=== PATIENT | female | born 1955 | race Caucasian/White ===

== ENCOUNTER 2017-07-25 10:23 | Emergency (ER) | payer OTHER ==
[2017-07-25] MEDS ORDERED: Ondansetron ODT TAB* 4 MG PO ONE (11:41)
[2017-07-25] MEDS ORDERED: PROCHLORPERAZINE INJ 5 MG/ML 2 ML VIAL IM ONE (12:08)
[2017-07-25 12:26] VITALS: BP 150/67
--- NOTE | 2017-07-25 13:02 | UC ---
Carson Bliss Angela, scribed for Tawana Corey MD on 07/25/17 at 1132 . General HPI - HPI Summary HPI Summary: This pt is a 61 y/o female presenting to [facility] c/o nausea, vomiting, and diarrhea x3 days. Pt reports she first had 1 episode of emesis 5 days ago (on Thursday). She states she felt fine the next day and went to work. On Thursday, 3 days ago, she began to have nausea, vomiting, and diarrhea. Pt additionally notes feeling dizziness, light-headedness, generalized weakness, cold and hot chills. Pt reports a 100.8 F temperature last night. Pt took motrin yesterday but notes she vomited it. Pt describes diarrhea as watery, and overnight she had a BM. She denies bloody stools. She last urinated today and had some diarrhea. Her last episode of emesis was last night. Pt notes additional sx of abd cramping with her symptoms. Pt states having decreased fluid intake. Pt is no longer taking metformin. She reports taking lyrica, gabapentin (for neuropathy in feet), baby aspirin, multivitamins, lisinopril, and recently started taking pioglitazone (for DM). Pt states she has not been taking gabapentin over the last few days since her symptoms began (3 days ago on Thursday night). Only diabetes medication she has been taking is pioglitazone, last taken this morning. Has been missing most of her other meds. PMHx: rectal CA, diabetes. Here accompanied by her daughter. - History of Current Complaint Chief Complaint: UCAbdominalPain Stated Complaint: VOMITING/DIARRHEA CHILLS Time Seen by Provider: 07/25/17 11:20 Hx Obtained From: Patient Onset/Duration: Lasting Days Timing: Constant Associated Signs & Symptoms: Positive: Abdominal Pain, Diarrhea, Fever, Nausea, Vomiting. Negative: Headache - Allergy/Home Medications Allergies/Adverse Reactions: Allergies Allergy/AdvReac Type Severity Reaction Status Date / Time Nickel Allergy Severe Rash Verified 07/25/17 10:29 Nylon Allergy Severe Rash And Verified 07/25/17 10:29 Itching Tetracycline [From Sumycin] Allergy Severe Nausea And Verified 07/25/17 10:29 Vomiting Penicillins Allergy Intermediate Rash Verified 07/25/17 10:29 Sulfa Drugs Allergy Intermediate Rash Verified 07/25/17 10:29 Trimethoprim [From Trimpex] Allergy Intermediate Swelling Verified 07/25/17 10: 29 Home Medications: Home Medications Pioglitazon/[id number]/1000(NF) 30 mg PO DAILY 07/25/17 [History Confirmed ] PMH/Surg Hx/FS Hx/Imm Hx - Additional Past Medical History Additional PMH: PMHx: peripheral neuropathy Endocrine History: Diabetes Other Respiratory History: DENIES COPD Cancer History: Other Other Cancer History: rectal CA 2014 - Surgical History Surgical History: Yes Surgery Procedure, Year, and Place: HYSTERECTOMY/2 C-SECTIONS/LT KNEE scoped - Family History Known Family History: Positive: Other - Father: lung CA. Mother: pancreatic CA. - Social History Lives: Alone Alcohol Use: Occasionally Alcohol Amount: 1-2 DRINKS/WEEKENDS Substance Use Type: None Smoking Status (MU): Former Smoker Type: Cigarettes Amount Used/How Often: QUIT 6 YEARS AGO Have You Smoked in the Last Year: No When Did the Patient Quit Smoking/Using Tobacco: 2008 Review of Systems Constitutional: Fever, Chills, Other - fingerstick today is 185. Last home check several days ago was 300. Skin: Negative Eyes: Negative ENT: Negative Respiratory: Negative Cardiovascular: Negative Gastrointestinal: Abdominal Pain, Vomiting, Diarrhea, Nausea Genitourinary: Negative, Other - normal renal function by report. Motor: Negative Neurovascular: Negative Neurological: Weakness - generalized, Numbness - takes both lyrica and gabapentin for neuropathy, Other - light-headedness, dizziness Psychological: Negative All Other Systems Reviewed And Are Negative: Yes Physical Exam Triage Information Reviewed: Yes Appearance: Ill-Appearing, Obese Vital Signs: Initial Vital Signs Temp 98 F 07/25/17 10:30 Pulse 101 07/25/17 10:30 Resp 20 07/25/17 10:30 BP 144/69 07/25/17 10:30 Pulse Ox 100 07/25/17 10:30 Eye Exam: Normal ENT: Positive: Pharynx normal - moist mucous membranes. Dental Exam: Normal Neck: Positive: Supple, Nontender, No Lymphadenopathy Respiratory: Positive: Lungs clear, Normal breath sounds Cardiovascular: Positive: RRR, No Murmur, Tachycardia - mild initially Abdomen Description: Positive: Nontender, No Organomegaly, Soft Bowel Sounds: Positive: Present Musculoskeletal Exam: Normal Neurological: Positive: Alert - looks mildly fatigued. Psychological Exam: Normal Skin Exam: Normal - warm and dry, no edema. Re-Evaluation - Re-Evaluation First Eval Re-Evaluation Time: 12:45 Comment: Pt is a little better. She is a little less nauseated and is tolerating sips. Course/Dx - Course Course Of Treatment: Pt medications reviewed this visit. Elevated blood pressure is noted. Glucose is 184. - Differential Dx - Multi-Symptom Differential Diagnoses: Other - dehydration, gastroenteritis Provider Diagnoses: gastroenteritis, mild dehydration. diabetes. suspect withdrawal from gabapentin. Discharge - Discharge Plan Condition: Stable Disposition: HOME Patient Education Materials: Gastroenteritis (ED), Clear Liquid Diet (ED) Forms: *Work Release Referrals: Mckayla Schaeffer MD [Primary Care Provider] - Additional Instructions: I think that you have had a viral gastroenteritis that is getting better slowly. You are mildly dehydrated, but I suspect that some of your symptoms are due to abruptly stopping the gabapentin and Lyrica. Once at home, take a dose of gabapentin with a sip of fluid. I anticipate that this will further decrease your nausea. Continue rehydration with sips of clear fluids. Clear soup broth would be a good choice because it would get some nutrition into you. Continue clear liquids through this afternoon, taking small sips frequently. If by 6 pm you are not improved and able to tolerate fluids, please go to the ER for evaluation, because you will need lab work in order to guide fluid replacement. If you have an appetite, begin to eat small meals: soups, pasta, baked or poached meats, cooked vegetables. The documentation as recorded by the Carson briceño Angela accurately reflects the service I personally performed and the decisions made by me, Tawana Corey MD.
== END 2017-07-25 13:02 | disposition home or self-care (01) ==
LOC: UCEAST 10:23
DX: K52.9 Noninfective gastroenteritis and colitis, unspecified (principal); E11.9 Type 2 diabetes mellitus without complications; Z88.6 Allergy status to analgesic agent; Z88.1 Allergy status to other antibiotic agents; Z88.0 Allergy status to penicillin; Z88.2 Allergy status to sulfonamides; Z88.8 Allergy status to other drugs, medicaments and biological substances
CPT/HCPCS: 96372; 99212; A9270-GY; G0463; J0780

== ENCOUNTER 2017-08-08 11:02 | Emergency (ER) | payer OTHER ==
[2017-08-08 11:17] VITALS: BP 124/65
[2017-08-08] MEDS ORDERED: oxyCODONE/Acetamin 5/325 MG* TAB PO ONE (12:27)
[2017-08-08] MEDS ORDERED: Ketorolac INJ* 60 MG/2 ML VIAL IM ONE (12:27)
--- NOTE | 2017-08-08 13:14 | RAD ---
CLINICAL HISTORY: Left flank pain COMPARISON: March 19, 2016 TECHNIQUE: Multiple contiguous axial CT scans were obtained of the abdomen and pelvis, without intravenous contrast enhancement. Coronal and sagittal multiplanar reformations are submitted for review. Oral contrast was not administered. FINDINGS: LUNG BASES: The lung bases are clear. LIVER: The liver is homogeneously enlarged measuring 20 cm in long axis. BILE DUCTS: There is no intrahepatic or extrahepatic biliary dilatation. GALLBLADDER: A gallstone is noted. No pericholecystic inflammatory changes noted. PANCREAS: The pancreas is normal, without mass or ductal dilatation. SPLEEN: Normal in size and appearance. UPPER GI TRACT: Evaluation of the gastrointestinal tract is limited by incomplete gastric distention. The upper GI tract is unremarkable. SMALL BOWEL AND MESENTERY: The small bowel is normal in contour, course, and caliber. There is no obstruction or dilatation. COLON: There are multiple diverticula of the sigmoid colon. There is no pericolonic inflammatory change. ADRENALS: Normal bilaterally. KIDNEYS: There is a 0.6 cm left renal pelvic stone. There is a 0.2 cm calculus of the proximal left ureter at the UPJ. There is no appreciable hydronephrosis. BLADDER: The bladder is smooth in contour. PELVIC ORGANS: The pelvic organs are not visualized. AORTA: There is calcific atherosclerotic disease of the abdominal aorta and its branches, without aneurysmal dilatation IVC: Unremarkable LYMPH NODES: There is no lymphadenopathy by size criteria. ABDOMINAL WALL: There is no evidence for abdominal wall hernia. BONES AND SOFT TISSUES: There are mild diffuse degenerative changes. OTHER: None IMPRESSION: 1. LEFT-SIDED NEPHROLITHIASIS WITHOUT APPRECIABLE HYDRONEPHROSIS. 2. HEPATOMEGALY. 3. CHOLELITHIASIS. 4. DIVERTICULOSIS. 5. ATHEROSCLEROSIS.
--- NOTE | 2017-08-08 13:18 | RAD ---
HISTORY: The upper lumbar pain, left flank pain COMPARISONS: CT dated July 31, 2017 TECHNIQUE: Multiple contiguous axial CT scans were obtained of the lumbar spine without intravenous contrast, with coronal and sagittal multiplanar reformations. FINDINGS: SPINAL CANAL: Evaluation of the central canal is limited on CT technique; however, there is no obvious canalicular mass or epidural hemorrhage. ALIGNMENT: The alignment is normal. VERTEBRAL BODIES: There is multilevel anterolateral marginal osteophyte formation. JOINTS: There is facet hypertrophy change most pronounced at L5-S1 MUSCULATURE: Unremarkable INTERVERTEBRAL DISCS: There is diffuse loss of intervertebral disc height throughout the spine. AXIAL IMAGES: T12-L1: There is no osseous neural foraminal narrowing or central canal stenosis. L1-L2: There is no osseous neural foraminal narrowing or central canal stenosis. L2-L3: There is no osseous neural foraminal narrowing or central canal stenosis. L3-L4: There is no osseous neural foraminal narrowing or central canal stenosis. L4-L5: There is broad-based disc bulge. There is no significant neural foraminal narrowing central canal stenosis. L5-S1: There is bilateral facet hypertrophy with marginal osteophyte formation at the neural foramina bilaterally. There is moderate bilateral neural foraminal narrowing. There is no osseous central canal stenosis. SOFT TISSUES: Again noted is left-sided nephrolithiasis OTHER: None IMPRESSION: 1. AGAIN NOTED IS LEFT-SIDED NEPHROLITHIASIS. 2. DEGENERATIVE DISC DISEASE AND OSTEOARTHRITIS
[2017-08-08] MEDS ORDERED: Cyclobenzaprine TAB* 10 MG PO ONE (13:49)
[2017-08-08] MEDS ORDERED: Tamsulosin CAP* 0.4 MG PO ONE (13:50)
[2017-08-08 14:26] LABS: Hematocrit 36 % (35-47); Mean Corpuscular HGB Conc 34 g/dl (31-36); Mean Corpuscular Hemoglobin 31 pg (27-31); Mean Corpuscular Volume 91 fL (80-97); Mean Platelet Volume 7 um3 (7.4-10.4); Red Blood Count 3.89 10^6/ul (4.0-5.4); Red Cell Distribution Width 14 % (10.5-15); White Blood Count 6.6 10^3/ul (3.5-10.8)
[2017-08-08 14:43] LABS: Albumin 4.2 g/dL (3.2-5.2); BUN/Creatinine Ratio 19.3 (8-20); C Reactive Protein 39.17 mg/L (< 5.00); Calcium 10.8 mg/dL (8.6-10.3); EGFR Non-African American 65.3 (>60); Globulin 4.4 g/dL (2-4); Potassium 3.9 mmol/L (3.5-5.0); Total Bilirubin 0.5 mg/dL (0.2-1.0); Total Protein 8.6 g/dL (6.4-8.9)
[2017-08-08 14:50] LABS: Urine Bacteria Absent (Absent); Urine Bilirubin Negative (Negative); Urine Glucose Negative (Negative); Urine Nitrite Negative (Negative)
[2017-08-08] MEDS ORDERED: Ciprofloxacin TAB* 500 MG PO ONE (15:20)
--- NOTE | 2017-08-08 15:38 | ED ---
Mauro Bliss Thomas, scribed for Alvarez Chu MD on 08/08/17 at 1219 . Back Pain - HPI Summary HPI Summary: The pt is a 61 y/o F presenting to the ED c/o back pain that began seven days ago. The pain is worst on the left side. The pain began after she was mowing her lawn. The pain does not radiate into her buttocks or legs. The pain comes and goes. The pain is described as spasmodic. The pain is rated 5/10. The pain is aggravated by movement and is alleviated by nothing. The patient has treated the pain with Cyclobenazaprine 10mg and [id number] ibuprofen. She reports prior back injuries. Pt additionally c/o constipation. Pt denies abd pain, nausea, vomiting, dysuria, urinary or fecal incontinence. - History of Current Complaint Chief Complaint: EDBackInjuryPain Stated Complaint: BACK PAIN Time Seen by Provider: 08/08/17 12:06 Hx Obtained From: Patient Onset/Duration: Lasting Weeks - onset of pain one week ago, Still Present Onset/Duration: Still Present Timing: Intermittent Severity Currently: Severe Pain Intensity: 5 Pain Scale Used: 0-10 Numeric Character: Spasmodic Aggravating Symptom(s): Movement Alleviating Symptom(s): Nothing Associated Signs And Symptoms: Positive: Other - Constipation; NEGATIVE: nausea , vomiting, dysuria. Negative: Fever, Abdominal Pain, Bladder Incontinence, Bowel Incontinence - Allergies/Home Medications Allergies/Adverse Reactions: Allergies Allergy/AdvReac Type Severity Reaction Status Date / Time Nickel Allergy Severe Rash Verified 07/25/17 10:29 Nylon Allergy Severe Rash And Verified 07/25/17 10:29 Itching Tetracycline [From Sumycin] Allergy Severe Nausea And Verified 07/25/17 10:29 Vomiting Penicillins Allergy Intermediate Rash Verified 07/25/17 10:29 Sulfa Drugs Allergy Intermediate Rash Verified 07/25/17 10:29 Trimethoprim [From Trimpex] Allergy Intermediate Swelling Verified 07/25/17 10: 29 PMH/Surg Hx/FS Hx/Imm Hx Previously Healthy: No Endocrine/Hematology History: Reports: Hx Diabetes Denies: Hx Systemic Lupus Erythematosus, Hx Thyroid Disease Cardiovascular History: Denies: Hx Congestive Heart Failure, Hx Hypertension Comment Only: Other Cardiovascular Problems/Disorders - MURMUR Respiratory History: Reports: Hx Sleep Apnea - current CPAP user, compliant Denies: Hx Asthma, Hx Chronic Obstructive Pulmonary Disease (COPD) GI History: Denies: Hx Ulcer, Other GI Disorders History: Denies: Hx Dialysis, Hx Renal Disease Musculoskeletal History: Denies: Hx Rheumatoid Arthritis Sensory History: Reports: Hx Cataracts - STARTING NO SURGERY YET, Hx Contacts or Glasses - INST GLASSES Denies: Hx Hearing Aid Opthamlomology History: Reports: Hx Cataracts - STARTING NO SURGERY YET, Hx Contacts or Glasses - INST GLASSES Psychiatric History: Reports: Hx Depression - improved, no longer taking meds - Cancer History Cancer Type, Location and Year: rectal cancer 2014 with radiation and chemotherapy Hx Chemotherapy: Yes - ANAL CANCER 2012 Hx Radiation Therapy: Yes - ANAL CANCER 2012 - Surgical History Surgery Procedure, Year, and Place: HYSTERECTOMY/2 C-SECTIONS/LT KNEE scoped Hx Anesthesia Reactions: No Infectious Disease History: No Infectious Disease History: Denies: Hx Clostridium Difficile, Hx Hepatitis, Hx Human Immunodeficiency Virus (HIV), Hx Shingles, Hx Tuberculosis, Hx Known/Suspected VRE, Hx Known/ Suspected VRSA, History Other Infectious Disease, Traveled Outside the in Last 30 Days - Family History Known Family History: Positive: Other - Father: lung CA. Mother: pancreatic CA. - Social History Alcohol Use: Occasionally Alcohol Amount: 1-2 DRINKS/WEEKENDS Hx Substance Use: No Substance Use Type: Reports: None Hx Tobacco Use: Yes Smoking Status (MU): Former Smoker Type: Cigarettes Amount Used/How Often: QUIT 6 YEARS AGO Have You Smoked in the Last Year: No Review of Systems Negative: Fever Positive: Other - Constipation; NEGATIVE: . Negative: Abdominal Pain, Vomiting , Nausea Negative: dysuria, incontinence - urinary Positive: Other - Back pain All Other Systems Reviewed And Are Negative: Yes Physical Exam - Summary Physical Exam Summary: General: well-appearing, moderate pain distress with movement. Skin: warm, color reflects adequate perfusion, dry Head: normal Eyes: EOMI, BRAYAN ENT: normal Neck: supple, nontender Respiratory: CTA, breath sounds present Cardiovascular: RRR Abdomen: soft. Left flank tenderness. Minimal L-sided abdominal tenderness. Bowel: present Musculoskeletal: strength/ROM intact. She is tender to the upper lumbar midline and also the paraspinal muscles on the right and left. FROM in the legs. Neurological: normal, sensory/motor intact, A&O x3. Good sensation and no weakness in the legs. Psychological: affect/mood appropriate Triage Information Reviewed: Yes Vital Signs On Initial Exam: Initial Vitals Temp Pulse Resp BP Pulse Ox 98.2 F 96 20 124/65 96 08/08/17 11:14 08/08/17 11:14 08/08/17 11:14 08/08/17 11:14 08/08/17 11:14 Vital Signs Reviewed: Yes Diagnostics - Vital Signs Vital Signs Temp Pulse Resp BP Pulse Ox 08/08/17 11:14 98.2 F 96 20 124/65 96 - Laboratory Lab Results: Lab Results 08/08/17 08/08/17 08/08/17 Range/Units 14:15 14:15 14:15 WBC 6.6 (3.5-10.8) 10^3/ul RBC 3.89 L (4.0-5.4) 10^6/ul Hgb 12.0 (12.0-16.0) g/dl Hct 36 (35-47) % MCV 91 (80-97) fL MCH 31 (27-31) pg MCHC 34 (31-36) g/dl RDW 14 (10.5-15) % Plt Count 347 (150-450) 10^3/ul MPV 7 L (7.4-10.4) um3 Neut % (Auto) 59.8 (38-83) % Lymph % (Auto) 31.9 (25-47) % [place] % (Auto) 6.6 (1-9) % Eos % (Auto) 0.6 (0-6) % Baso % (Auto) 1.1 (0-2) % Absolute Neuts (auto) 3.9 (1.5-7.7) 10^3/ul Absolute Lymphs (auto) 2.1 (1.0-4.8) 10^3/ul Absolute Monos (auto) 0.4 (0-0.8) 10^3/ul Absolute Eos (auto) 0 (0-0.6) 10^3/ul Absolute Basos (auto) 0.1 (0-0.2) 10^3/ul Absolute Nucleated RBC 0.01 10^3/ul Nucleated RBC % 0.1 INR (Anticoag Therapy) 1.01 (0.89-1.11) APTT 34.2 (26.0-36.3) seconds Sodium 134 (133-145) mmol/L Potassium 3.9 (3.5-5.0) mmol/L Chloride 99 L (101-111) mmol/L Carbon Dioxide 26 (22-32) mmol/L Anion Gap 9 (2-11) mmol/L BUN 17 (6-24) mg/dL Creatinine 0.88 (0.51-0.95) mg/dL Est GFR ( Amer) 84.0 (>60) Est GFR (Non-Af Amer) 65.3 (>60) BUN/Creatinine Ratio 19.3 (8-20) Glucose 93 (70-100) mg/dL Lactic Acid (0.5-2.0) mmol/L Calcium 10.8 H (8.6-10.3) mg/dL Total Bilirubin 0.50 (0.2-1.0) mg/dL AST 31 (13-39) U/L ALT 30 (7-52) U/L Alkaline Phosphatase 60 (34-104) U/L C-Reactive Protein 39.17 H (< 5.00) mg/L Total Protein 8.6 (6.4-8.9) g/dL Albumin 4.2 (3.2-5.2) g/dL Globulin 4.4 H (2-4) g/dL Albumin/Globulin Ratio 1.0 (1-3) Lipase 33 (11.0-82.0) U/L Urine Color Urine Appearance Urine pH (5-9) Ur Specific [place] (1.010-1.030) Urine Protein (Negative) Urine Ketones (Negative) Urine Blood (Negative) Urine Nitrate (Negative) Urine Bilirubin (Negative) Urine Urobilinogen (Negative) Ur Leukocyte Esterase (Negative) Urine WBC (Auto) (Absent) Urine RBC (Auto) (Absent) Ur Squamous Epith Cells (Absent) Ur Transition Epith Cell (Absent) Urine Bacteria (Absent) Hyaline Casts (Absent) Urine Glucose (Negative) 08/08/17 08/08/17 Range/Units 14:15 14:35 WBC (3.5-10.8) 10^3/ul RBC (4.0-5.4) 10^6/ul Hgb (12.0-16.0) g/dl Hct (35-47) % MCV (80-97) fL MCH (27-31) pg MCHC (31-36) g/dl RDW (10.5-15) % Plt Count (150-450) 10^3/ul MPV (7.4-10.4) um3 Neut % (Auto) (38-83) % Lymph % (Auto) (25-47) % [place] % (Auto) (1-9) % Eos % (Auto) (0-6) % Baso % (Auto) (0-2) % Absolute Neuts (auto) (1.5-7.7) 10^3/ul Absolute Lymphs (auto) (1.0-4.8) 10^3/ul Absolute Monos (auto) (0-0.8) 10^3/ul Absolute Eos (auto) (0-0.6) 10^3/ul Absolute Basos (auto) (0-0.2) 10^3/ul Absolute Nucleated RBC 10^3/ul Nucleated RBC % INR (Anticoag Therapy) (0.89-1.11) APTT (26.0-36.3) seconds Sodium (133-145) mmol/L Potassium (3.5-5.0) mmol/L Chloride (101-111) mmol/L Carbon Dioxide (22-32) mmol/L Anion Gap (2-11) mmol/L BUN (6-24) mg/dL Creatinine (0.51-0.95) mg/dL Est GFR ( Amer) (>60) Est GFR (Non-Af Amer) (>60) BUN/Creatinine Ratio (8-20) Glucose (70-100) mg/dL Lactic Acid 0.7 (0.5-2.0) mmol/L Calcium (8.6-10.3) mg/dL Total Bilirubin (0.2-1.0) mg/dL AST (13-39) U/L ALT (7-52) U/L Alkaline Phosphatase (34-104) U/L C-Reactive Protein (< 5.00) mg/L Total Protein (6.4-8.9) g/dL Albumin (3.2-5.2) g/dL Globulin (2-4) g/dL Albumin/Globulin Ratio (1-3) Lipase (11.0-82.0) U/L Urine Color Yellow Urine Appearance Cloudy Urine pH 5.0 (5-9) Ur Specific [place] 1.013 (1.010-1.030) Urine Protein Negative (Negative) Urine Ketones Negative (Negative) Urine Blood Negative (Negative) Urine Nitrate Negative (Negative) Urine Bilirubin Negative (Negative) Urine Urobilinogen Negative (Negative) Ur Leukocyte Esterase 3+ H (Negative) Urine WBC (Auto) 3+(>20/hpf) H (Absent) Urine RBC (Auto) Absent (Absent) Ur Squamous Epith Cells Present H (Absent) Ur Transition Epith Cell Present H (Absent) Urine Bacteria Absent (Absent) Hyaline Casts Present H (Absent) Urine Glucose Negative (Negative) Result Diagrams: 08/08/17 14:15 08/08/17 14:15 Lab Statement: Any lab studies that have been ordered have been reviewed, and results considered in the medical decision making process. - CT CT Abd/Pel CT Interpretation: No Acute Changes - 1. LEFT-SIDED NEPHROLITHIASIS WITHOUT APPRECIABLE HYDRONEPHROSIS. 2. HEPATOMEGALY. 3. CHOLELITHIASIS. 4. DIVERTICULOSIS. 5. ATHEROSCLEROSIS. ED physician has reviewed this report and agrees. CT Interpretation Completed By: Radiologist CT L-Spine CT Interpretation: No Acute Changes - 1. AGAIN NOTED IS LEFT-SIDED NEPHROLITHIASIS. 2. DEGENERATIVE DISC DISEASE AND OSTEOARTHRITIS. ED physician has reviewed the report and agrees. CT Interpretation Completed By: Radiologist Back Pain Course/Dx - Course Course Of Treatment: Medications reviewed. Allergies noted. DISCUSSED RESULTS WITH PATIENT. HER PAIN IS WORSE WITH MOVEMENT; THE CAUSE OF HER PAIN IS MOST LIKELY MUSCULOSKELETAL. F/U WITH PMD. SHE HAS A 2MM KIDNEY STONE IN THE LEFT UPJ WITHOUT HYDRO SO, THIS STONE MAY BE A CAUSE OF THE PAIN. RX FLOMAX AND F/U WITH UROLOGY. THERE IS PYURIA WITHOUT BACTERIA AND NO SIGNS OF HYDRO OR INFECTION. I AM STARTING CIPRO TO COVER ANY POSSIBILITY OF A UTI. I DISCUSSED THE DANGER OF SEPSIS IF THERE IS A STONE WITH A UTI AND SHE AGREED TO RETURN TO THE ED WITH ANY SIGNS OF INFECTION OR ANY CONCERNS. - Diagnoses Provider Diagnoses: Low back pain, Left flank pain, Kidney stone on left side, Pyuria Discharge - Discharge Plan Condition: Stable Disposition: HOME Prescriptions: Ciprofloxacin TAB* [Cipro 500 MG TAB*] 500 mg PO BID #13 tab Tamsulosin CAP* [Flomax CAP*] 0.4 mg PO DAILY #5 cap oxyCODONE/Acetamin 5/325 MG* [Percocet 5/325 TAB*] 1 tab PO Q4H PRN #20 tab MDD 6 PRN Reason: Pain Patient Education Materials: Kidney Stones (ED), Acute Low Back Pain (ED), Flank Pain (ED) Referrals: Mckayla Schaeffer MD [Primary Care Provider] - [facility] [Provider Group] Additional Instructions: FOLLOW UP WITH YOUR PRIMARY CARE DOCTOR AND UROLOGY. YOUR PAIN APPEARS TO BE FROM MUSCLE STRAIN. HOWEVER, YOU DO HAVE A KIDNEY STONE IN THE PROXIMAL URETER ON THE LEFT THAT MAY BE CONTRIBUTING TO THE PAIN. TAKE THE PAIN MEDICATIONS AND FLOMAX DIRECTED. THERE WERE SON WHITE BLOOD CELLS IN YOUR URINE. IT DOES NOT APPEAR THAT YOU HAVE A URINARY TRACT INFECTION. HOWEVER, IF YOU HAVE A UTI AND A KIDNEY STONE, IT CAN BE DANGEROUS BY CAUSING SEPSIS. THEREFORE, WE ARE STARTING YOU ON ANTIBIOTICS. IF YOU HAVE ANY SIGNS OF INFECTION, COME BACK TO THE EMERGENCY DEPARTMENT IMMEDIATELY. RETURN TO THE EMERGENCY DEPARTMENT FOR ANY WORSENING OF YOUR CONDITION; PAIN, FEVER, VOMITING, YOU FEEL ILL, WEAKNESS, NUMBNESS OR QUESTIONS OR CONCERNS. The documentation as recorded by the Mauro briceño Thomas accurately reflects the service I personally performed and the decisions made by me, Alvarez Chu MD.
== END 2017-08-08 16:12 | disposition home or self-care (01) ==
LOC: ED 11:02
DX: N20.0 Calculus of kidney (principal); N39.0 Urinary tract infection, site not specified; M54.5 Low back pain; R16.0 Hepatomegaly, not elsewhere classified; K59.00 Constipation, unspecified; K80.20 Calculus of gallbladder without cholecystitis without obstruction; K57.30 Diverticulosis of large intestine without perforation or abscess without bleeding; I70.0 Atherosclerosis of aorta; M51.36 Other intervertebral disc degeneration, lumbar region; M47.816 Spondylosis without myelopathy or radiculopathy, lumbar region; E11.9 Type 2 diabetes mellitus without complications; G47.30 Sleep apnea, unspecified; F32.9 Major depressive disorder, single episode, unspecified; Z85.048 Personal history of other malignant neoplasm of rectum, rectosigmoid junction, and anus; Z90.710 Acquired absence of both cervix and uterus; Z88.0 Allergy status to penicillin; Z88.2 Allergy status to sulfonamides; Z87.891 Personal history of nicotine dependence
CPT/HCPCS: 36415; 72131; 74176; 80053; 81003; 81015; 83605; 83690; 85025; 85610; 85730; 86140; 87086; 96372; 99283; A9270-GY; J1885

== ENCOUNTER 2017-08-31 06:19 | Day surgery (SDC) | payer OTHER ==
--- NOTE | 2017-08-26 22:25 | HP ---
CC: Dr. Schaeffer * ADMITTING HISTORY AND PHYSICAL: DATE OF ADMISSION: 08/31/17 ADMITTING DIAGNOSIS: Left renal calculi. PLANNED PROCEDURE: Shockwave lithotripsy, left renal calculi. HISTORY OF PRESENT ILLNESS: Trini Nielsen is 61-year-old lady who had originally been evaluated a few weeks ago for left flank pain. At that time, she had been noted to have 6 mm calculus in the left renal pelvis and a 2 mm calculus at the left ureteropelvic junction. She has had episodic pain since then and the most recent ultrasound revealed 4.5 mm calculus in the renal pelvis and 8.7 mm calculus in the mid to lower pole of the left kidney. She is now being brought in for lithotripsy of the left renal calculi. PAST MEDICAL HISTORY: Significant for: 1. Diabetes mellitus. 2. Peripheral neuropathy. 3. History of anal carcinoma treated with radiation and chemotherapy. PAST SURGICAL HISTORY: Significant for x2 and hysterectomy. MEDICATIONS: On admission: 1. Repaglinide 1 mg by mouth with meals. 2. Flexeril 10 mg 3 times a day. 3. Pioglitazone 30 mg daily. 4. Lisinopril 2.5 mg daily. 5. Gabapentin 100 mg 3 times a day. 6. Cholecalciferol 50,000 units monthly. 7. Lyrica 75 mg 3 times a day. ALLERGIES AND INTOLERANCES: PENICILLIN, TETRACYCLINE and SULFA. PHYSICAL EXAMINATION GENERAL: Reveals a pleasant uncomfortable appearing middle-aged lady. VITAL SIGNS: Blood pressure is 150/88, pulse 80 per minute, oxygen saturation 99% on room air, temperature 97.1. LUNGS: Clear bilaterally. CARDIOVASCULAR: Regular rate and rhythm. S1 and S2. ABDOMEN: Soft with mild left flank tenderness. IMPRESSION: A 61-year-old lady with 2 nonobstructing calculi in the left kidney, one of which is located in the left renal pelvis. I have discussed the procedure of lithotripsy in detail including possible risks of bleeding, infection, incomplete fragmentation, and possible injury to the kidney. She appears to understand and wishes to proceed as planned. I have also discussed the small possibility of obstructing fragments requiring stent insertion in the near future after the lithotripsy. [id number]/[facility] #: [id number] [facility]
[~2017-08-31 06:19] MED LIST: Buffered Lidocaine 0.9% SYRIN* 5 ML/SYR SYRINGE INTRADERM ONE; Famotidine IV* 10 MG/ML 2 ML (20 mg) IV ONE; Metoclopramide TAB* 10 MG PO ONE
[2017-08-31] MEDS ORDERED: Famotidine IV* 10 MG/ML 2 ML (20 mg) ONE (06:47)
[2017-08-31] MEDS ORDERED: Metoclopramide TAB* 10 MG ONE (06:48)
[2017-08-31] MEDS ORDERED: Levofloxacin 500 MG IVPREMIX(* 500 MG/100 ML BAG IVPB ONE (06:48)
[2017-08-31] MEDS ORDERED: Buffered Lidocaine 0.9% SYRIN* 5 ML/SYR SYRINGE ONE (06:48)
[2017-08-31] MEDS ORDERED: KETAMINE HCL* 50 MG/ML 10 ML VIAL ONE (07:35)
[2017-08-31] MEDS ORDERED: Propofol* 10 MG/ML 20 ML BTL IV PUSH ONE (07:35)
[2017-08-31] MEDS ORDERED: Ondansetron INJ* 2 MG/ML VIAL ONE (07:35)
[2017-08-31] MEDS ORDERED: Dexamethasone IV* 4 MG/ML 1 ML (4 MG) ONE (07:35)
[2017-08-31] MEDS ORDERED: fentaNYL* 50 MCG/ML 2 ML VIAL (100 MCG VIAL) ONE (07:35)
[2017-08-31] MEDS ORDERED: Ketorolac INJ* 30 MG/ML 1 ML VIAL ONE (07:35)
[2017-08-31] MEDS ORDERED: Lidocaine 2% PF * 5 ML VIAL ONE (07:35)
[2017-08-31] MEDS ORDERED: Midazolam* 1 MG/ML 5 ML VIAL (5 MG) ONE (07:36)
--- NOTE | 2017-08-31 07:50 | RAD ---
HISTORY: Shock wave lithotripsy COMPARISONS: August 20, 2017 VIEWS: Frontal views of the abdomen. FINDINGS: BOWEL: There is a nonspecific bowel gas pattern, with nondilated small bowel gas noted. CALCULI: There are multiple calculi overlying the left renal parenchymal shadow measuring up to 0.4 cm in size. There is a calculus of the right upper quadrant measuring 1 cm that appears to be extrarenal BONES AND SOFT TISSUES: Mild degenerative changes are noted. OTHER FINDINGS: The lung bases are clear. There is no subphrenic gas. IMPRESSION: 1. LEFT NEPHROLITHIASIS. 2. CHOLELITHIASIS.
[2017-08-31] MEDS ORDERED: Furosemide IV* 10 MG/ML 2 ML VIAL (20 MG) ONE (08:05)
[2017-08-31] MEDS ORDERED: fentaNYL* 50 MCG/ML 2 ML VIAL (100 MCG VIAL) IV PRN (08:24)
[2017-08-31] MEDS ORDERED: Ondansetron INJ* 2 MG/ML VIAL IV PRN (08:24)
[2017-08-31] MEDS ORDERED: HYDROmorphone INJ* 1 MG/ML CARPUJECT SYRINGE IV PRN (08:24)
[2017-08-31 10:04] VITALS: BP 124/74
--- NOTE | 2017-08-31 10:43 | RAD ---
HISTORY: Postop lithotripsy COMPARISONS: August 31, 2017 at 6:31 AM VIEWS: Frontal views of the abdomen at 10:25 AM FINDINGS: BOWEL: There is a nonspecific bowel gas pattern, with nondilated small bowel gas noted. CALCULI: Again noted is a calculus overlying the left renal parenchymal shadow and a right upper quadrant calculus, stable from the previous examination. BONES AND SOFT TISSUES: Degenerative changes are noted. OTHER FINDINGS: The lung bases are clear. There is no subphrenic gas. IMPRESSION: STABLE LEFT NEPHROLITHIASIS
--- NOTE | 2017-08-31 13:32 | OP ---
CC: Mckayla Schaeffer MD * DATE OF OPERATION: 08/31/17 - LOCATED WITHIN [facility] DATE OF : 55 SURGEON: Jm Shirley MD. ANESTHESIOLOGIST: Dr. Tyler. ANESTHESIA: General. PRE-OP DIAGNOSIS: Left renal calculi. POST-OP DIAGNOSIS: Left renal calculi. OPERATIVE PROCEDURE: Shock wave lithotripsy of left renal calculi. INDICATIONS: Trini Nielsen is a 61-year-old lady who has had episodic left flank pain and was noted to have two calculi in the left kidney. I discussed the procedure of lithotripsy including possible risks of bleeding, infection, and complete fragmentation and possible injury to the kidney. She understands and wishes to proceed as planned. COMPLICATIONS: None. POSTOPERATIVE CONDITION: Stable. DESCRIPTION OF PROCEDURE: After induction of general anesthesia, the patient was placed on the lithotripsy table in supine position. Sequential compression devices were in place and functioning. Initial fluoroscopy revealed two calculi in the midpole area of the left kidney, one of them close to the renal pelvis. The larger of the two calculi was first targeted with shock waves at a rate of 90 shocks per minute. After the initial 300 shocks, there was a pause in lithotripsy for several minutes in an effort to minimize any potential trauma to the kidney. Lithotripsy was then resumed. Periodic imaging revealed good localization and a total of 2400 shocks were distributed between the two calculi. The patient tolerated the procedure satisfactorily and was transferred back to the recovery area in stable condition. [id number]/CPS #: [id number] MTDD
== END 2017-08-31 10:15 | disposition home or self-care (01) ==
LOC: OR 06:19
PROVIDERS: ATTEND Urology
DX: N20.0 Calculus of kidney (principal); E11.9 Type 2 diabetes mellitus without complications; G62.9 Polyneuropathy, unspecified; Z85.048 Personal history of other malignant neoplasm of rectum, rectosigmoid junction, and anus; Z68.41 Body mass index [BMI] 40.0-44.9, adult; I10 Essential (primary) hypertension; R01.1 Cardiac murmur, unspecified; D64.9 Anemia, unspecified
CPT/HCPCS: 74000; A9270-GY; J1100; J1885; J1940; J1956; J2250; J2405; J2704; J3010

== ENCOUNTER 2019-06-24 15:36 | Observation (INO) | payer OTHER ==
--- OUTSIDE RECORDS SUMMARY | 2019-06-24 15:57 | XMS REPORT | Continuity of Care Document ---
:1955 External Reference #:[id number] Author Name Johanna Diaz NP Address [address] [place] [address] Care Team Providers Name Role Phone Mckayla Schaeffer - Family Medicine Care Team Information [facility] - Diagnostic Care Team Information [facility] Radiology Stephenie Campbell MD - Hematology & Care Team Information [facility] Oncology Tawana Schmitt - Manager [employer] Care Team Information [facility] Problems Active Problems Provider Date Type 2 diabetes mellitus Mckayla Schaeffer M.D. Onset: 12/26/2010 Mixed hyperlipidemia Mckayla Schaeffer M.D. Onset: 12/26/2010 Depressive disorder Mckayla Schaeffer M.D. Onset: 12/26/2010 Psoriasis Mckayla Schaeffer M.D. Onset: 12/26/2010 Cough Kajal Alejandro M.D. Onset: 07/21/2011 Vitamin D deficiency Mckayla Schaeffer M.D. Onset: 10/16/2011 Acquired keratoderma Mckayla Schaeffer M.D. Onset: 11/28/2011 Obstructive sleep apnea syndrome Mckayla Schaeffer M.D. Onset: 02/27/2012 Chronic rhinitis Mckayla Schaeffer M.D. Onset: 06/25/2012 Arthralgia of the ankle and/or foot Mckayla Schaeffer M.D. Onset: 08/23/2012 Nervous system disorder due to diabetes Mckayla Schaeffer M.D. Onset: 2013 mellitus Obesity Mckayla Schaeffer M.D. 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 Onset: 12/18/2017 Social History Type Date Description Comments Sex Unknown Tobacco Use Start: Unknown End: Former Cigarette Smoker Unknown Tobacco Use Start: Unknown End: Former Cigarette Smoker 1 Quit February. Unknown Pack Daily Smoking Status Reviewed: 04/08/19 Former Cigarette Smoker 1 Quit February. Pack Daily ETOH Use Social Alcohol 1-2 drinks weekly. Tobacco Use Start: Unknown End: Patient is a former smoker Unknown Allergies, Adverse Reactions, Alerts Active Allergies Reaction Severity Comments Date Penicillin Tetracyc Sulfa Drugs swelling, hives Nickel Urticaria 02/05/2009 Nylon Contact dermatitis 02/05/2009 Medications Active Medications SIG Qnty Indications Ordering Date Provider Clotrimazole apply very 15gm B37.3 Mckayla Solis 04/08/2019 1% Cream sparingly twice Dina Schaeffer daily to affected area. Azelastine HCL 2 sprays per 30ml J30.89 Mckayla Solis 04/08/2019 (Nasal) nostril twice a Dina Schaeffer 0.15% day. Solution Cpap, Machine, Mask, Use as directed. 1uncynthia Solis 03/02/2019 Tubing And Supplies dx: g47.3, Dina Schaeffer duration - lifetime, last seen 12/03/18 Cpap machine, mask, 1uncynthia Solis 02/10/2019 tubing and Dina Schaeffer supplies. dx: g47.33, duration: lifetime last seen 12/03/18 fax to optum fax to optum: [phone] Trulicity inject sub every 1.5ml E11.42 Mckayla Solis 12/22/2018 1.5mg/0.5ML weekly Dina Schaeffer Solution Pen-Inject Pravastatin Sodium Take 1 Tablet By 90tabs E78.2 Mckayla Solis 12/18/2017 Mouth AT Night. Dina Schaeffer 20mg Tablets Clarinex 1 by mouth every 90tabs Marcus Leach 11/09/2017 5mg Tablets day Dina Mccarthy Tizanidine HCL 1 -2 by mouth 60caps M54.5 Mckayla Solis 08/19/2017 4mg three times daily Dina Schaeffer Capsules driving precautions Onetouch Ultra Blue Test Two Times 200units Mckayla Solis 07/18/2017 Daily Dina Schaeffer Strips Vitamin D take 1 capsule by 12caps Mckayla Solis 11/25/2016 (Ergocalciferol) mouth once monthly Dina Schaeffer [id number] Capsules Amitriptyline HCL take 1 tablet by 90tabs Mckayla Solis 08/21/2016 mouth at bedtime Dina Schaeffer 10mg Tablets Repaglinide take 1 tablet by 90tabs Mylene Feliz 08/20/2016 1mg mouth 2 times Yuan, [employer] Tablets daily before each meal One Touch Ultra test bid Dx: 180units Mckayla Solis 05/27/2016 Test e11.40 last Dina Schaeffer Strips office visit 04/24/16 Onetouch Basic test blood sugar 1units Mckayla Solis 03/26/2015 System twice daily Dina Schaeffer w/Device Kit dx:250.00 Onetouch Lancets test blood glucose 200units Mckayla Solis 03/24/2015 two times a daily Dina Schaeffer Misc dx: e11.9 last office visit 02/15/19 Lisinopril Take 1 Tablet By 90tabs I10 Mylene Ann 03/15/2015 2.5mg Mouth AT Bedtime Yuan, [employer] Tablets Lyrica 1 by mouth three 90caps E11.40 Mckayla Solis 02/28/2014 75mg Capsules times a day mdd 3 Dina Schaeffer Gabapentin take 2 capsules by 540caps Mckayla Solis 06/15/2013 100mg mouth two to three Dina Schaeffer Capsules times daily Baby Aspirin 1 po qd 100units 250.00 Mckayla Solis 12/26/2010 81mg Dina Schaeffer Chewtabs Multivitamin 1 po daily 250.00 Mckayla Solis 12/26/2010 Dina Schaeffer Pioglitazone HCL take one tablet by Unknown 30mg mouth every day in Tablets the evening for diabetes History Medications Cpap Tubing And use as directed. fax # 1units Mckayla Schaeffer, 2018 - Mask [phone] Dina 02/10/2019 professional home care Medications Administered in Office Medication SIG Qnty Indications Ordering Provider Date TB Intradermal Test Mckayla Schaeffer M.D. 12/01/2011 Injection TB Intradermal Test Mckayla Schaeffer M.D. 12/03/2010 Injection Immunizations CPT Code Status Date Vaccine Lot # [id number] Given 06/24/2018 Influenza Vac, Quadrivalent, Slit Virus, Im [id number] Given 11/19/2016 Zostivax [id number] Given 07/31/2016 Influenza Vac, Quadrivalent, Slit Virus, Im [id number] 76216 Given 07/21/2013 Tdap Tetanus, W Pertussis [id number] Given 07/21/2013 DO Not Use Split Influenza Virus Vaccine [id number] 92917 Given 12/26/2010 Pneumococcal Immunization [id number] Given 09/15/2009 DO Not Use Split Influenza Virus Vaccine [id number] Given 06/29/2007 Tetanus And Diptheria Adult Preservative Free [id number] >[id number] Vital Signs Date Vital Result Comment 06/24/2019 2:12pm BP Systolic 150 mmHg BP Diastolic 70 mmHg Heart Rate 90 /min Body Temperature 98.1 F Height 61.25 inches 5'1.25" Weight 257.00 lb BMI (Body Mass Index) 48.2 kg/m2 04/08/2019 12:56pm BP Systolic 112 mmHg BP Diastolic 72 mmHg Heart Rate 66 /min Body Temperature 97.7 F Respiratory Rate 18 /min Height 61.25 inches 5'1.25" Weight 254.12 lb BMI (Body Mass Index) 47.6 kg/m2 Results Test Date Facility Test Result H/L Range Note Laboratory test finding 04/08/2019 [facility]) CK 166 U/L High 26 -140 1 Vitamin D25 33 30-100 Comprehensive Metabolic 03/30/2019 [facility]) Sodium 136 mEq/L 134-149 Prof Potassium 4.8 mEq/L 3.6-5.5 Chloride 98 mEq/L 94-112 Carbon Dioxide 25 mEq/L 21-32 Glucose 179 mg/dL High 70-105 2 BUN 16 mg/dL 6-26 Creatinine 0.8 mg/dL 0.6-1.4 BUN/Creat Ratio 20.0 CALC 8.0-36.0 Calcium 9.6 mg/dL 8.6-10.2 Total Protein 7.3 g/dL 6.4-8.3 Albumin 4.8 g/dL 3.8-5.5 Globulin 2.5 g/dL 2.0-4.8 A/G Ratio 1.9 CALC 0.6-2.3 Alk. Phosphatase 67 U/L 30-110 Alt (SGPT) 28 U/L 7-35 Ast (Sgot) 25 U/L 5-34 Total Bilirubin 0.6 mg/dL 0.2-1.3 GFR Non- >60 ml/min/1.73m^ >=60 GFR >60 ml/min/1.73m^ >=60 Lipid Profile 03/30/2019 [facility]audh[facility]) Cholesterol 206 mg/dL High 120-200 Triglycerides 309 mg/dL High 30-200 HDL Cholesterol 39 mg/dL 30-85 LDL (Calculated) 105 CALC 0-129 VLDL Cholesterol 62 mg/dL High 0-50 HDL Risk Factor 5.3 CALC High 0.0-4.4 CBC Electronic a 03/30/2019 [facility] Chaudhry([facility]) WBC 7.7 x10^3/UL 4.0- 10.0 RBC 4.13 x10^6/UL 3.93-6.00 HGB 13.0 g/dL 12.0-17.0 HCT 39 % 35-50 MCV 95.2 fL High 80.0-95.0 MCH 31.5 pg 25.6-32.2 MCHC 33.1 g/dL 32.2-36.0 RDW-CV 13.5 % 11.6-14.4 PLT 205 x10^3/UL 163-400 MPV 10.1 fL 9.4-12.4 Kennedy# 5.73 x10^3/UL 1.56-6.13 Lymph# 1.34 x10^3/UL 1.18-3.74 Gates# 0.50 x10^3/UL 0.24-0.82 Eos # 0.1 x10^3/UL 0.0-0.5 Baso # 0.03 x10^3/UL 0.01-0.08 Kennedy% 74.5 % High 34.0-70.0 Lymph % 17.4 % Low 20.0-52.0 Gates% 6.5 % 5.0-12.0 Eos% 0.9 % 0.7-7.0 Baso% 0.4 % 0.1-1.2 Laboratory test finding 03/30/2019 [facility]) TSH 1.04 mIU/L 0.50-6.00 LDL, Direct 103 mg/dL 0-130 1 RESULTS VERIFIED BY REPEAT ANALYSIS 2 consistent w/ previous results Procedures Date Code Description Status 12/09/2018 [id number] Mammogram Completed 08/27/2018 [id number] Diabetic Retinal Eye Exam Completed 11/30/2017 [id number] Mammogram Completed 11/27/2016 [id number] Mammogram Completed 11/02/2015 [id number] Colonoscopy Completed 10/19/2015 [id number] Mammogram Completed 09/13/2014 [id number] Mammogram Completed 09/22/2013 [id number] Mammogram Completed 12/18/2011 [id number] Mammogram Completed 10/29/2010 [id number] Colonoscopy Completed 02/05/2010 [id number] Mammogram Completed 01/10/2010 [id number] Bone Mineral Density Test Completed 06/20/2009 [id number] Mammogram Completed 12/14/2008 [id number] Mammogram Completed 10/26/2007 [id number] Colonoscopy Completed 07/02/2007 [id number] Mammogram Completed 05/12/2006 [id number] Colonoscopy Completed 04/09/2006 [id number] Mammogram Completed Medical Devices Description No Information Available Encounters Type Date Location Provider Dx Diagnosis Office Visit 04/08/2019 [facility] Mckayla Solis Z00.01 Encounter for 1:00p Hayden Schaeffer. general adult medical exam w abnormal findings E11.42 Type 2 diabetes mellitus with diabetic polyneuropathy E66.3 Overweight B37.3 Candidiasis of vulva and vagina E78.2 Mixed hyperlipidemia E55.9 Vitamin D deficiency, unspecified J30.89 Other allergic rhinitis Office Visit 02/15/2019 12:20p [facility] Office Mckayla Solis M25.541 Pain in Dina Schaeffer joints of right hand Assessments Date Code Description Provider 06/24/2019 J02.9 Acute pharyngitis, unspecified Johanna Diaz NP 06/24/2019 R06.1 Stridor Johanna Diaz, MICKI 04/08/2019 Z00.01 Encounter for general adult medical Mckayla Schaeffer M.D. examination with abnorma 04/08/2019 E11.42 Type 2 diabetes mellitus with diabetic Mckayla Schaeffer M.D. polyneuropathy 04/08/2019 E66.3 Overweight Mckayla Schaeffer M.D. 04/08/2019 B37.3 Candidiasis of vulva and vagina Mckayla Schaeffer M.D. 04/08/2019 E78.2 Mixed hyperlipidemia Mckayla Schaeffer M.D. 04/08/2019 E55.9 Vitamin D deficiency, unspecified Mckayla Schaeffer M.D. 04/08/2019 J30.89 Other allergic rhinitis Mckayla Schaeffer M.D. 03/30/2019 Z00.00 Encntr for general adult medical exam w/o Mckayla Schaeffer M.D. abnormal findings 02/15/2019 M25.541 Pain in joints of right hand Mckayla Schaeffer M.D. Plan of Treatment Future Appointment(s):08/09/2019 3:30 pm - Mckayla Schaeffer M.D. at [facility]06/24/2019 - Johanna Diaz, NPJ02.9 Acute pharyngitis, unspecifiedComments:Please go right to the emergency department for further evaluation and treatment. If you develop difficulty breathing, stop and dial 911.R06.1 StridorAllComments:1. Patient has been queried about patient's goals/ preferences and functional/lifestyle goals at relevant visits. If relevant, describe: Has been discussed, noted above2. Treatment goals as explainedto the patient: see above3. Are there barriers to meeting treatment goals? Yes If Yes, please describe: Barriers include possible insurance limits, disease process, and difficulty with lifestyle changes4. Self-Management goals as described to the patient: Yes, see above As always, we strongly encourage a healthy diet and making physical activity a part of your every day life. If you have questions about how or where to start, please contact the office. Functional Status Description No Information Available Mental Status Description No Information Available Referrals Refer to Reason for Referral Status Appt Date Stephenie Campbell MD for final visit for rectal cancer Scheduled 06/10/[address] [place] [id number] [phone] Bambi Ortez ([facility]) right thumb pain jw Scheduled 02/17/[address] [place] [address] New address as of 11/13/2014 [phone]
[2019-06-24 16:50] LABS: ABS Eosinophils 0.1 10^3/ul (0-0.6); ABS Lymphocytes 1.9 10^3/ul (1.0-4.8); ABS Monocytes 0.5 10^3/ul (0-0.8); ABS Neutrophils 3.8 10^3/ul (1.5-7.7); Hematocrit 34 % (35-47); Lymphocyte % 29.9 %; Mean Corpuscular HGB Conc 35 g/dL (31-36); Mean Corpuscular Hemoglobin 33 pg (27-31); Mean Corpuscular Volume 93 fL (80-97); Mean Platelet Volume 8.1 fL (7.4-10.4); Platelet Count 218 10^3/uL (150-450); Red Cell Distribution Width 14 % (10-15); White Blood Count 6.3 10^3/uL (3.5-10.8)
[2019-06-24 17:03] LABS: Albumin 4.1 g/dL (3.2-5.2); Albumin/Globulin Ratio 1.5 (1-3); BUN/Creatinine Ratio 13.2 (8-20); C Reactive Protein 40.14 mg/L (<8.01); Calcium 9.2 mg/dL (8.6-10.3); EGFR African American 105.7 (>60); EGFR Non-African American 87.4 (>60); Globulin 2.8 g/dL (2-4); Potassium 3.9 mmol/L (3.5-5.0); Total Bilirubin 0.4 mg/dL (0.2-1.0); Total Protein 6.9 g/dL (6.4-8.9)
[2019-06-24] MEDS ORDERED: Iodixanol* (CONTRAST) 320 MG/ML 100 ML SDV IV ONE (17:05)
--- NOTE | 2019-06-24 17:26 | ED ---
Neck Pain - HPI Summary HPI Summary: Patient is a 63-year-old female with a history of type 2 diabetes and remote colorectal cancer presenting to the ED from PCP office. Patient states she's been having difficulty with talking at times, difficulty swallowing and sometimes painful swelling. Symptoms are worse to the right side of the anterior portion of the neck. Denies any airway compromise and continues to breathe okay. Denies any shortness of breath. She states at times she is having symptoms of feeling her throat tighten, but is not experiencing that at this time. She denies any fevers, sweats, chills. Denies any ear pain rhinorrhea or eye pain. Denies any abdominal pain, urinary symptoms or back pain. Denies diarrhea or constipation. She was sent in by her PCP for further evaluation as she was noted to have stridor on exam. - History of Current Complaint Chief Complaint: EDGeneral Stated Complaint: SORE THROAT/DIFFICULTY BREATHING PER PT Time Seen by Provider: 06/24/19 15:59 Hx Obtained From: Patient Timing: Constant Onset/Duration: Gradual Onset Severity Initially: Moderate Severity Currently: Moderate Pain Intensity: 8 Pain Scale Used: 0-10 Numeric Location: Discrete At: - right sided neck pain Character: Aching, Stiff Aggravating Factors: Position Alleviating Factors: Nothing Associated Signs & Symptoms: Negative: Swelling, Redness, Bruising, Fever, Nuchal Rigity, Weakness, Headache - Risk Factors Meningitis Risk Factors: Negative - Allergies/Home Medications Allergies/Adverse Reactions: Allergies Allergy/AdvReac Type Severity Reaction Status Date / Time nickel Allergy Rash Verified 09/05/18 10:39 Penicillins Allergy Swelling Verified 09/05/18 10:39 Sulfa (Sulfonamide Allergy Rash Verified 09/05/18 10:40 Antibiotics) Tetracyclines Allergy Swelling Verified 09/05/18 10:39 trimethoprim [From Trimpex] Allergy Swelling Verified 09/05/18 10:40 nickel Allergy Rash Uncoded 09/05/18 10:39 nylon Allergy Rash Uncoded 09/05/18 10:41 Home Medications: Home Medications Amitriptyline TAB* [Elavil TAB*] 10 mg PO BEDTIME 06/24/19 [History Confirmed ] Aspirin 81 mg CHEW TAB* [Aspirin Low Dose TAB*] 81 mg PO DAILY 06/24/19 [ History Confirmed 06/24/19] Dulaglutide (NF) [Trulicity (NF)] 1.5 mg SUBCUT WEEKLY 06/24/19 [History Confirmed 06/24/19] Gabapentin CAP(*) [Neurontin 100 mg CAP(*)] 200 mg PO TID 06/24/19 [History Confirmed 06/24/19] Lisinopril TAB* [Prinivil TAB*] 2.5 mg PO QPM 06/24/19 [History Confirmed ] LoraTADine TAB(NF) [Claritin 10 MG TAB(NF)] 10 mg PO DAILY 06/24/19 [History Confirmed 06/24/19] Multivitamins/Minerals TAB* [Theragran/minerals TAB*] 1 tab PO DAILY 06/24/19 [ History Confirmed 06/24/19] Pioglitazone TAB* [Actos TAB*] 30 mg PO DAILY 06/24/19 [History Confirmed ] Pravastatin (NF) [Pravachol (NF)] 20 mg PO BEDTIME 06/24/19 [History Confirmed 06/24/19] PMH/Surg Hx/FS Hx/Imm Hx Previously Healthy: Yes Endocrine/Hematology History: Reports: Hx Diabetes - TYPE II- ON ORAL MEDICATION FOR Denies: Hx Systemic Lupus Erythematosus, Hx Thyroid Disease Cardiovascular History: Reports: Other Cardiovascular Problems/Disorders - MURMUR Denies: Hx Congestive Heart Failure, Hx Hypertension Respiratory History: Reports: Hx Sleep Apnea Denies: Hx Asthma, Hx Chronic Obstructive Pulmonary Disease (COPD) GI History: Denies: Hx Ulcer, Other GI Disorders History: Reports: Hx Kidney Stones Denies: Hx Dialysis, Hx Renal Disease Musculoskeletal History: Reports: Other Musculoskeletal History - "STRAINED BACK " Denies: Hx Rheumatoid Arthritis Sensory History: Reports: Hx Cataracts, Hx Contacts or Glasses - READING GLASSES Denies: Hx Hearing Aid Opthamlomology History: Reports: Hx Cataracts, Hx Contacts or Glasses - READING GLASSES Psychiatric History: Reports: Hx Depression - HX OF IN THE PAST - Cancer History Cancer Type, Location and Year: rectal Hx Chemotherapy: Yes - RECTAL CANCER 2012 Hx Radiation Therapy: Yes - ANAL CANCER 2012 - Surgical History Surgery Procedure, Year, and Place: HYSTERECTOMY/2 C-SECTIONS/LT KNEE scoped. BILATERAL CATARACT -2014 Hx Anesthesia Reactions: No - Immunization History Hx Pertussis Vaccination: No Immunizations Up to Date: Yes Infectious Disease History: No Infectious Disease History: Denies: Hx Clostridium Difficile, Hx Hepatitis, Hx Human Immunodeficiency Virus (HIV), Hx Shingles, Hx Tuberculosis, Hx Known/Suspected VRE, Hx Known/ Suspected VRSA, History Other Infectious Disease, Traveled Outside the [place] in Last 30 Days - Family History Known Family History: Positive: Diabetes, Other - Father: lung CA. Mother: pancreatic CA. Family History: Father: lung CA. Mother: pancreatic CA. - Social History Occupation: Unemployed Lives: With Family Alcohol Use: Occasionally Alcohol Amount: 1-2 DRINKS/WEEKENDS Hx Substance Use: No Substance Use Type: Reports: None Hx Tobacco Use: Yes Smoking Status (MU): Former Smoker Type: Cigarettes Amount Used/How Often: 1 PPD X30 YEARS Have You Smoked in the Last Year: No Review of Systems Constitutional: Negative Negative: Fever, Chills, Fatigue, Skin Diaphoresis Positive: Other - right sided neck pain Negative: Palpitations, Chest Pain Negative: Shortness Of Breath Genitourinary: Negative Positive: no symptoms reported, see HPI Negative: Arthralgia, Myalgia Skin: Negative Neurological: Negative All Other Systems Reviewed And Are Negative: Yes Physical Exam Triage Information Reviewed: Yes Vital Signs On Initial Exam: Initial Vitals Temp Pulse Resp BP Pulse Ox 98.4 F 82 20 150/80 98 06/24/19 15:37 06/24/19 15:37 06/24/19 15:37 06/24/19 15:37 06/24/19 15:37 Vital Signs Reviewed: Yes Appearance: Positive: Well-Appearing, Well-Nourished Skin: Positive: Warm, Skin Color Reflects Adequate Perfusion Head/Face: Positive: Normal Head/Face Inspection Eyes: Positive: EOMI, BRAYAN, Conjunctiva Clear ENT: Positive: Pharynx normal, Other - stridorous voice. Negative: Pharyngeal erythema, Nasal congestion, Nasal drainage, Tonsillar swelling, Tonsillar exudate, Dental tenderness, Sinus tenderness Respiratory/Lung Sounds: Positive: Clear to Auscultation Cardiovascular: Positive: RRR, Pulses are Symmetrical in both Upper and Lower Extremities Musculoskeletal: Positive: Strength/ROM Intact Neurological: Positive: Sensory/Motor Intact, Alert, Oriented to Person Place, Time, Speech Normal Psychiatric: Positive: Affect/Mood Appropriate Diagnostics - Vital Signs Vital Signs Temp Pulse Resp BP Pulse Ox 06/24/19 16:32 78 20 116/70 95 06/24/19 16:02 89 15 142/84 98 06/24/19 16:00 8 06/24/19 15:37 98.4 F 82 20 150/80 98 - Laboratory Lab Results: Lab Results 06/24/19 06/24/19 06/24/19 Range/Units 16:37 16:37 16:37 WBC 6.3 (3.5-10.8) 10^3/uL RBC 3.70 (3.70-4.87) 10^6 /uL Hgb 12.0 (12.0-16.0) g/dL Hct 34 L (35-47) % MCV 93 (80-97) fL MCH 33 H (27-31) pg MCHC 35 (31-36) g/dL RDW 14 (10-15) % Plt Count 218 (150-450) 10^3/uL MPV 8.1 (7.4-10.4) fL Neut % (Auto) 60.6 % Lymph % (Auto) 29.9 % [place] % (Auto) 8.1 % Eos % (Auto) 1.0 % Baso % (Auto) 0.4 % Absolute Neuts (auto) 3.8 (1.5-7.7) 10^3/ul Absolute Lymphs (auto) 1.9 (1.0-4.8) 10^3/ul Absolute Monos (auto) 0.5 (0-0.8) 10^3/ul Absolute Eos (auto) 0.1 (0-0.6) 10^3/ul Absolute Basos (auto) 0.0 (0-0.2) 10^3/ul Absolute Nucleated RBC 0.0 10^3/ul Nucleated RBC % 0.0 Sodium 138 (135-145) mmol/L Potassium 3.9 (3.5-5.0) mmol/L Chloride 104 (101-111) mmol/L Carbon Dioxide 29 (22-32) mmol/L Anion Gap 5 (2-11) mmol/L BUN 9 (6-24) mg/dL Creatinine 0.68 (0.51-0.95) mg/dL Est GFR ( Amer) 105.7 (>60) Est GFR (Non-Af Amer) 87.4 (>60) BUN/Creatinine Ratio 13.2 (8-20) Glucose 105 H (70-100) mg/dL Lactic Acid 1.2 (0.5-2.0) mmol/L Calcium 9.2 (8.6-10.3) mg/dL Total Bilirubin 0.40 (0.2-1.0) mg/dL AST 14 (13-39) U/L ALT 18 (7-52) U/L Alkaline Phosphatase 65 (34-104) U/L C-Reactive Protein 40.14 H (<8.01) mg/L Total Protein 6.9 (6.4-8.9) g/dL Albumin 4.1 (3.2-5.2) g/dL Globulin 2.8 (2-4) g/dL Albumin/Globulin Ratio 1.5 (1-3) Result Diagrams: 06/24/19 16:37 06/24/19 16:37 Lab Statement: Any lab studies that have been ordered have been reviewed, and results considered in the medical decision making process. Neck Course/Dx - Course Course Of Treatment: During course of treatment the patient's evaluated for right-sided neck pain, some difficulty with swallowing. On physical examination , there is only slight stridor when asked patient to take a deep breath. Denies shortness of breath. Lungs CTA, RRR. Cervical LAD bilaterally, right sided neck tenderness. Labs are obtained as well as a CT of the neck. These pending as patient is signed out to BENEDICTO Gutiérrez. - Diagnoses Differential Dx/HQI/PQRI: Positive: Sprain, Strain, Other - cervical LAD, mass, CA Provider Diagnoses: Thyroid mass Discharge ED - Sign-Out/Discharge Documenting (check all that apply): Sign-Out Patient Signing out patient TO: Aguilar Albrecht Patient Received Moderate/Deep Sedation with Procedure: No - Discharge Plan Condition: Stable Disposition: ADMITTED TO [facility] - Billing Disposition and Condition Condition: STABLE Disposition: Admitted to [facility]
--- NOTE | 2019-06-24 17:36 | ED ---
Progress - Progress Note Progress Note: 63 yo female received in sign out from Kelly DIANE. Pt tells me that she has had a sore throat for the past 3 days and has not been able to eat more than liquids since that time. Today she developed "shortness of breath" in that she feels she cannot take a full breath because her throat is swollen. She went to her PCP today and a lump was felt in her neck and she was advised to come to the ED. She has a hx of HTN, HLD, DM2, and rectal cancer that was treated 4 years ago with chemo and radiation per pt. She denies fever, recent weight loss, night sweats, chest pain. GENERAL: NAD. SKIN: No rashes, sores, or open wounds. HEENT: Head: AT/NC Eyes: PERRLA. EOM intact. Conjunctiva clear without inflammation or discharge. Ears: Hearing grossly normal. TMs intact, no bulging, erythema, or edema. Nose: Nasal mucosa pink and moist. NTTP maxillary and frontal sinus. Throat: Posterior oropharynx without exudates, erythema, or tonsillar enlargement. Uvula midline. NECK: Fullness at anterior neck with TTP at right anterior neck. CHEST: CTAB. No r/r/w. No accessory muscle use. Breathing comfortably and in no distress. CV: RRR. Without m/r/g. Pulses intact. Brisk cap refill. NEURO: Alert. PSYCH: Age appropriate behavior. Course/Dx - Course Course Of Treatment: CT: IMPRESSION: 1. 3.5 CM MASS WITHIN THE RIGHT THYROID LOBE. RECOMMEND THYROID ULTRASOUND FOR FURTHER EVALUATION. 2. MILDLY PROMINENT LYMPH NODE LOCATED IN THE MEDIASTINUM INFERIOR TO THE MASS. Discussed with Dr. Lynne of ENT and he recommends admission and he will see pt. Discussed with Dr. Wilson of Hospitalist service and he accepts pt for admission. - Diagnoses Provider Diagnoses: Thyroid mass - Provider Notifications Discussed Care Of Patient With: Jung Lynne Time Discussed With Above Provider: 18:31 Instructed by Provider To: Admit As Inpatient Discharge ED - Sign-Out/Discharge Documenting (check all that apply): Receiving Sign-Out Receiving patient FROM: Kelly Desouza Patient Received Moderate/Deep Sedation with Procedure: No - Discharge Plan Condition: Stable Disposition: ADMITTED TO [facility] Referrals: Mckayla Schaeffer MD [Primary Care Provider] - - Billing Disposition and Condition Condition: STABLE Disposition: Admitted to [facility]
[2019-06-24 20:08] LABS: TSH (Thyroid Stimulating Horm) 1.05 mcIU/mL (0.34-5.60)
[2019-06-24 20:13] LABS: Free T4 0.85 ng/dL (0.61-1.12)
[2019-06-24 20:18] LABS: Thyroid Peroxidase Antibodies 1.61 IU/mL (<9)
[2019-06-24] MEDS ORDERED: oxyCODONE/Acetamin 5/325 MG* TAB PO PRN (20:22)
[2019-06-24] MEDS ORDERED: Lidocaine 4% TOPICAL* 50 ML TOP.SOLN ONE (20:24)
[2019-06-24] MEDS ORDERED: Oxymetazoline 0.05% NASAL SPR* 15 ML BTL BOTH NARES ONE (20:46)
[2019-06-24] MEDS ORDERED: Lidocaine 4% TOPICAL* 50 ML TOP.SOLN TOPICAL ONE (20:46)
[2019-06-24] MEDS ORDERED: Atorvastatin* 10 MG TAB PO SCH (21:00)
[2019-06-24] MEDS ORDERED: Lisinopril TAB* 5 MG PO SCH (21:00)
[2019-06-24] MEDS ORDERED: Acetaminophen TAB* 325 MG PO PRN (21:00)
[2019-06-24] MEDS ORDERED: Dextrose 50% VIAL 50 ml IV PUSH PRN (21:12)
[2019-06-24 21:30] LABS: INR 1.02 (0.82-1.09)
--- NOTE | 2019-06-24 21:51 | CONS ---
CC: Dr. Lynne; Dr. Schaeffer * EMERGENCY ROOM CONSULTATION NOTE: DATE OF CONSULT: 06/24/19 REQUESTING CONSULTATION: By the ER and I have also spoken with Dr. Jamil Wilson, who is admitting the patient for the hospitalist service. HISTORY OF PRESENT ILLNESS: The patient is a 63-year-old who has had several days of sore throat and started having little difficulty breathing and some difficulty with swallowing because of the pain and she initially went to see Dr. Schaeffer and then was sent to the emergency room for workup. PAST MEDICAL HISTORY: She has a past history of having colorectal cancer but that has not been active. She is a type 2 diabetic, on medications but not on insulin and otherwise does not have any other significant medical problems. PHYSICAL EXAM: She has been obviously having some pain. She is not having any significant stridor at this time. She is able to talk without difficulty. No obvious masses in her neck on visualization. Oral cavity, oropharynx is clear without any masses, lesions, exudates or erythema. Neck is soft without any masses palpated, but very tender as you palpate the right side. DIAGNOSTIC STUDIES/LAB DATA: CT scan showed 3+ cm mass in the right thyroid and paratracheal node 1 cm just inferior to this. I performed nasolaryngoscopy after spraying her nose with Ronald-Synephrine and 4% lidocaine and she has a right vocal cord paralysis. No significant edema, masses, or lesions, and she does not have any significant airway compromise. Base of tongue, vallecula, and hypopharynx are all clear. Review of her laboratory data is her thyroid studies and her antithyroid antibodies were all normal. Her CRP is elevated at 40, but she does not have any significant elevations of white cell count. ASSESSMENT: The patient has right-sided neck pain with 3.5 cm thyroid mass and a vocal cord paralysis. With this presentation, my concern is that this is an aggressive malignancy starting either anaplastic thyroid carcinoma or perhaps lymphoma. It also could be metastatic cancer from elsewhere. RECOMMENDATIONS: I have spoken to Dr. Wilson about this. He is going to be admitting the patient for observation to make sure she does not have any significant breathing problems. She will need a thyroid ultrasound and then ultrasound-guided fine needle aspiration biopsy. If she is stable and that is not done over the weekend, I will see her on Thursday and arrange for the continuation of her care. [id number]/[facility] #: [id number] DAVID
[2019-06-24] MEDS ORDERED: Amitriptyline TAB* 10 MG PO SCH (22:00)
[2019-06-24 22:13] LABS: Uric Acid 5.1 mg/dL (2.3-6.6)
[2019-06-24] MEDS: Gabapentin CAP(*) 100 MG PO SCH (23:10)
[2019-06-24] MEDS: Dexamethasone TAB* 4 MG PO SCH (23:11)
[2019-06-24] MEDS: Pregabalin CAP(*) 25 MG PO SCH (23:11)
[2019-06-24] MEDS ORDERED: Insulin LISPRO* 1 UNITS UNIT SUBCUT ONE (23:23)
[2019-06-24] MEDS: Insulin LISPRO* 1 UNITS UNIT SUBCUT SCH (23:25)
--- NOTE | 2019-06-24 23:51 | HP ---
HISTORY AND PHYSICAL: DATE OF ADMISSION: 06/24/19 ADMITTING PROVIDER: Jamil Wilson MD. PRIMARY CARE PHYSICIAN: Mckayla Schaeffer MD. OUTPATIENT ONCOLOGIST: Dr. Campbell. CHIEF COMPLAINT: Sore throat, right neck and facial pain, shortness of breath with exertion. HISTORY OF PRESENT ILLNESS: Trini Neilsen is a 63-year-old female with past medical history of jjz-zcswrop-wbqimdirqjv diabetes mellitus, morbid obesity (BMI of 48.6), nephrolithiasis, peripheral neuropathy, hyperlipidemia, rectal cancer in 2011, status post chemoradiation. She was in her usual state of health until 2 days prior to admission when she developed a sore throat. She woke up the day prior to admission with some pain in the right side of her face and neck and on the morning of admission developed some worsened shortness of breath. She has not had any fevers or chills. No cough. No sick contacts. She went to see her primary care doctor, Dr. Mckayla Schaeffer, who referred her [place] [facility] for further evaluation. Initial workup included a CT of the neck, which demonstrated a 2.5 cm mass in the right thyroid lobe with recommendation for thyroid ultrasound for further evaluation. Dr. Lynne from ENT was consulted, who recommended admission to the hospital and follow up with the patient tomorrow. The patient denies any night sweats or weight loss. The patient is complaining of 8.5/10 pain. She denies any ear discomfort or trouble swallowing other than the sore throat. She had no leukocytosis. She is afebrile. CRP is elevated at 40. Thyroid studies have since been added and have returned within normal limits for TSH, free T4, total T3, thyroglobulin antibody, thyroid peroxidase antibody. She has been getting screen colonoscopies with Dr. Gaspar and last was approximately in 2015. She is due in October 2020. She denies any abdominal pain, diarrhea, constipation, nausea , or vomiting. PAST MEDICAL HISTORY: Xxa-kbiqlpc-wxjedereq diabetes mellitus, peripheral neuropathy, nephrolithiasis in 2017 with subsequent shockwave lithotripsy, morbid obesity with BMI of 48.6, chronic low back pain, and rectal cancer in 2011, status post chemoradiation, no surgical resection required. MEDICATIONS: Include: 1. Amitriptyline 10 mg p.o. q.p.m. 2. Pravastatin 20 mg p.o. at bedtime. 3. Trulicity 1.5 mg subcutaneously weekly. 4. Pioglitazone (Actos) 30 mg p.o. daily. 5. Lyrica 75 mg p.o. t.i.d. 6. Lisinopril 2.5 mg p.o. q.p.m. 7. Repaglinide (Prandin) 1 mg p.o. b.i.d. 8. Gabapentin 200 mg p.o. t.i.d. 9. Aspirin 81 mg daily. 10. Multivitamin 1 tablet p.o. daily. 11. Loratadine (Claritin) 10 mg p.o. daily. ALLERGIES: PENICILLIN causes a rash. SULFA causes angioedema/swelling. TETRACYCLINES cause swelling and also NICKEL and NYLON causes rash. FAMILY HISTORY: Mother of pancreatic cancer at age 76. Father of lung cancer at age 81 and he also had heart disease. Brother is alive at age 66 with bladder cancer. Sister is at age 60 and alive with some heart disease. Younger sister with bipolar disorder. Another older sister, but she does not know her medical history. SOCIAL HISTORY: The patient works in [employer] in the [employer] for the last 30 plus years. She is a former smoker and quit 11 years ago, 30 total pack years. She is . Medical surrogate would be her son, Joey Nielsen, and daughter, Tressa Albert. No current drug use. She smoked some marijuana in her youth. Occasionally, she drinks alcohol, but not in excess. REVIEW OF SYSTEMS: A 14-point review of systems is negative except as per HPI. PHYSICAL EXAMINATION GENERAL APPEARANCE: No acute distress. Slightly anxious appearing. VITAL SIGNS: Temperature 98.4, heart rate 90, respiratory rate is 15 to 31, saturating 93% to 98% on room air, and blood pressure is 150/80. HEENT: Normocephalic and atraumatic. Pupils are equal, round, and reactive to light. Extraocular motions are intact. No scleral icterus. Oropharynx is difficult to examine given large tongue, Mallampati Class IV. Ears, good light reflex with both tympanic membranes. No erythema. NECK: Obese. No distinct thyroid masses appreciated. LUNGS: Clear to auscultation bilaterally. No wheezing, rales, or rhonchi. CARDIOVASCULAR: Regular rate and rhythm. There is crescendo systolic ejection murmur that is loudest in the left upper and right upper sternal borders. ABDOMEN: Soft, nontender, and obese. No rebound or guarding. No Camara sign. EXTREMITIES: Warm and well perfused. Trace peripheral edema bilaterally. SKIN: No lesions. No rashes. NEUROLOGIC: Cranial nerves II through XII are intact. Beading Installer strength is intact bilaterally. DIAGNOSTIC STUDIES/LAB DATA: White count is 6.3, hemoglobin 12.0, platelets 218,000. Sodium 138, potassium 3.9, chloride 104, carbon dioxide 29, BUN 9, creatinine 0.68, glucose is 105, lactic acid is 1.2, calcium 9.2. Total bilirubin of 0.4, AST 14, ALT 18, alk phos 65. CRP 40.1. Albumin of 4.1. TSH is 1.5, free T4 of 0.85, total T3 of 91, thyroglobulin antibody 0.0, thyroid peroxidase antibody 1.61. Imaging of the chest PA and lateral view showed no acute findings. CT of the soft tissue with IV contrast demonstrated a 3.5-cm mass within the right thyroid lobe. I recommended thyroid ultrasound for further evaluation. There is a mildly prominent lymph node located in the mediastinum inferior to the mass (this is paraesophageal) and the mass was 3.5 x 2.1 x 2.8 cm in total. EKG demonstrated normal sinus rhythm. ASSESSMENT AND PLAN: Trini Nielsen is a 63-year-old female with past medical history of rectal cancer, status post chemoradiation; hbl-dvmkzty-oxrnvzyog diabetes mellitus; morbid obesity, presenting with rapid onset of right-sided neck and face pain, shortness of breath, sore throat, and imaging concerning for 3.5 cm mass in the right thyroid lobe. I appreciate the assistance of ENT, Dr. Lynne, who saw the patient and is concerned for possible aggressive malignancy such as anaplastic thyroid cancer or possible lymphoma and recommended getting an ultrasound of the thyroid in preparation for an ultrasound-guided FNA biopsy. Also, given her history of rectal cancer, status post chemotherapy, differential would also include metastatic cancer to the thyroid. He recommended observation overnight and making sure her airway is stable. He recommended consideration of Decadron to reduce swelling. Thyroid studies were normal. She does have an elevated CRP of 40. He did perform video evaluation of her vocal cords and there was complete paralysis on the right side per his report. I will give her Percocet 1 tablet p.o. q.6 hours p.r.n. for pain control. We will feed her heart-healthy, carbohydrate consistent diet at night and then n.p.o. at midnight. We will give her Decadron. For her xmo-mppynpg-jezlthhpp diabetes mellitus, I will continue her Actos and hold her Trulicity. I do not have A1c in our system, but her glucose has been within normal limits here. We will continue home medications including amitriptyline 10 mg p.o. at bedtime, aspirin 81 mg daily, Lipitor 5 mg daily, cetirizine 10 mg daily, lisinopril 2.5 mg daily for hypertension, Lyrica 75 mg p.o. t.i.d., and gabapentin 200 mg p.o. t.i.d. for her neuropathy. I did add rapid strep (Addendum: she now reports this was done at PCP and was negative), given her severe throat pain. If this return back positive, we likely would give her azithromycin given her PENICILLIN allergy versus possible cephalosporin if it can be confirmed with Dr. Schaeffer's office if she has tolerated any of those in the past. She is a full code. Medical surrogates are her daughter, Tressa Albert, and son, Joey Nielsen. [id number]/[facility] #: [id number] MTDD
--- NOTE | 2019-06-25 08:00 | PN ---
Subjective Date of Service: 06/25/19 Interval History: 63 y/o F with H/o DM, morbid obesity, rectal cancer s/p chemoradiation, peripheral neuropathy presnted with right face and neck pain, SOB, sorethroat for 2 days. Found to have right thyroid mass with prominent lN on mediastinum inferior to mass.Naslaryngoscopy showed right vocal cord paralysis with no compression of airways. VSS NO any complaint at present. Sarturation maintained on room air. Objective Active Medications: Acetaminophen (Tylenol Tab*) 650 mg PO Q6H PRN PRN Reason: MODERATE PAIN OR FEVER > 100.2 Amitriptyline HCl (Elavil Tab*) 10 mg PO BEDTIME [facility] Last Admin: 06/24/19 23:11 Dose: 10 mg Aspirin (Aspirin 81 Mg Chew Tab*) 81 mg PO DAILY [facility] Atorvastatin Calcium (Lipitor*) 5 mg PO BEDTIME [facility]; Protocol Last Admin: 06/24/19 23:07 Dose: 5 mg Cetirizine HCl (Zyrtec*) 10 mg PO DAILY [facility] Dexamethasone (Decadron Tab*) 4 mg PO BID [facility] Last Admin: 06/24/19 23:11 Dose: 4 mg Dextrose (Dextrose 50% Vial 50 Ml*) 25 ml IV PUSH .FOR FS < 60 - SS PRN PRN Reason: FS < 60 Gabapentin (Neurontin Cap(*)) 200 mg PO TID [facility] Last Admin: 06/24/19 23:10 Dose: 200 mg Insulin Human Lispro (Humalog*) 0 units SUBCUT ACHS [facility]; Protocol Last Admin: 06/24/19 23:25 Dose: 2 units Lisinopril (Prinivil Tab*) 2.5 mg PO QPM [facility] Last Admin: 06/24/19 23:09 Dose: 2.5 mg Multivitamins/Minerals (Theragran/Minerals Tab*) 1 tab PO DAILY [facility] Oxycodone/Acetaminophen (Percocet 5/325 Tab*) 1 tab PO Q6H PRN PRN Reason: PAIN - SEVERE Last Admin: 06/24/19 21:27 Dose: 1 tab Pioglitazone HCl (Actos Tab*) 30 mg PO DAILY [facility] Pregabalin (Lyrica Cap(*)) 75 mg PO TID [facility] Last Admin: 06/24/19 23:11 Dose: 75 mg Vital Signs - 8 hr 06/25/19 06/25/19 06/25/19 01:10 01:25 03:15 Temperature 97.6 F Pulse Rate 85 Respiratory 23 23 19 Rate Blood Pressure 126/58 (mmHg) O2 Sat by Pulse 94 Oximetry Oxygen Devices in Use Now: None Exam: Patient is lying on a bed with no acute distress HEENT: Normocephalisc and atraumatic; crowed orpharynx. Neck: No masses felt Lungs: Clear Heart: S1/S2 heard with no murmur or rub Abdomen: Soft, nondistended and nontender Extremity: No swelling or cyanosis Neuro: Alert, conscious and oriented Result Diagrams: 06/24/19 16:37 06/24/19 16:37 Additional Lab and Data: Lab Results 06/24/19 06/24/19 06/24/19 Range/Units 16:37 16:37 16:37 WBC 6.3 (3.5-10.8) 10^3/uL RBC 3.70 (3.70-4.87) 10^6 /uL Hgb 12.0 (12.0-16.0) g/dL Hct 34 L (35-47) % MCV 93 (80-97) fL MCH 33 H (27-31) pg MCHC 35 (31-36) g/dL RDW 14 (10-15) % Plt Count 218 (150-450) 10^3/uL MPV 8.1 (7.4-10.4) fL Neut % (Auto) 60.6 % Lymph % (Auto) 29.9 % Sac % (Auto) 8.1 % Eos % (Auto) 1.0 % Baso % (Auto) 0.4 % Absolute Neuts (auto) 3.8 (1.5-7.7) 10^3/ul Absolute Lymphs (auto) 1.9 (1.0-4.8) 10^3/ul Absolute Monos (auto) 0.5 (0-0.8) 10^3/ul Absolute Eos (auto) 0.1 (0-0.6) 10^3/ul Absolute Basos (auto) 0.0 (0-0.2) 10^3/ul Absolute Nucleated RBC 0.0 10^3/ul Nucleated RBC % 0.0 Sodium 138 (135-145) mmol/L Potassium 3.9 (3.5-5.0) mmol/L Chloride 104 (101-111) mmol/L Carbon Dioxide 29 (22-32) mmol/L Anion Gap 5 (2-11) mmol/L BUN 9 (6-24) mg/dL Creatinine 0.68 (0.51-0.95) mg/dL Est GFR ( Amer) 105.7 (>60) Est GFR (Non-Af Amer) 87.4 (>60) BUN/Creatinine Ratio 13.2 (8-20) Glucose 105 H (70-100) mg/dL Lactic Acid 1.2 (0.5-2.0) mmol/L Calcium 9.2 (8.6-10.3) mg/dL Total Bilirubin 0.40 (0.2-1.0) mg/dL AST 14 (13-39) U/L ALT 18 (7-52) U/L Alkaline Phosphatase 65 (34-104) U/L C-Reactive Protein 40.14 H (<8.01) mg/L Total Protein 6.9 (6.4-8.9) g/dL Albumin 4.1 (3.2-5.2) g/dL Globulin 2.8 (2-4) g/dL Albumin/Globulin Ratio 1.5 (1-3) Assess/Plan/Problems-Billing Assessment: 63 y/o F with H/o DM, morbid obesity,JAYJAY(on CPAP), rectal cancer s/p chemoradiation, peripheral neuropathy presnted with right face and neck pain, SOB, sorethroat for 2 days. Found to have right thyroid mass with prominent lN on mediastinum inferior to mass.Naslaryngoscopy showed right vocal cord paralysis with no compression of airways. - Patient Problems (1) Thyroid mass Current Visit: Yes Status: Acute Comment: presented with right face and neck pain with SOB and sore throat found to have right thyroid mass measuring 3.[address] NLG done by Dr. Lynne- right vocal cord paralysis with no any airway compromise. TFT normal with normal antibodies. Plan is to do US and FNAC; which is only available on thursday. No any sx at present. can be d/c (2) Diabetes Current Visit: No Status: Acute Code(s): E11.9 - TYPE 2 DIABETES MELLITUS WITHOUT COMPLICATIONS SNOMED Code(s): 09134013 Comment: HbA1c 7.1 On pioglitazone and insulin ss. trulicity on hold (3) DVT prophylaxis Current Visit: No Status: Acute Code(s): LAM4454 - SNOMED Code(s): 957876052 Comment: ambulatory (4) Full code status Current Visit: No Status: Acute Code(s): Z78.9 - OTHER SPECIFIED HEALTH STATUS SNOMED Code(s): 269833484 Status and Disposition: Observation; can be d/c today Attending: Meron Eisenberg Attestation Documenting Resident: Carlos Munoz Supervising Physician: Meron Eisenberg Attestation: This service has been performed in part by a resident under the direction of a teaching physician.I, Meron Eisenberg, performed the service, or was physically present during the critical, or luz portions of the service, furnished by the resident. I participated in the management of the patient.
[2019-06-25] MEDS: Gabapentin CAP(*) 100 MG PO SCH (08:49)
[2019-06-25] MEDS: Dexamethasone TAB* 4 MG PO SCH (08:52)
[2019-06-25] MEDS: Pregabalin CAP(*) 25 MG PO SCH (08:53)
[2019-06-25] MEDS: Insulin LISPRO* 1 UNITS UNIT SUBCUT SCH ×2 (08:58→12:29)
[2019-06-25] MEDS ORDERED: Multivitamins/Minerals TAB PO SCH (09:00)
[2019-06-25] MEDS ORDERED: Pioglitazone TAB* 30 MG PO SCH (09:00)
[2019-06-25] MEDS ORDERED: Aspirin 81 mg CHEW TAB* 81 MG TAB.CHEW PO SCH (09:00)
[2019-06-25] MEDS ORDERED: Cetirizine* 10 MG TAB PO SCH (09:00)
[2019-06-25 11:52] VITALS: BP 153/63
--- NOTE | 2019-06-25 13:02 | DS ---
CC: Mckayla Schaeffer MD; Jung Lynne MD DISCHARGE SUMMARY: DATE OF ADMISSION: 06/24/19 DATE OF DISCHARGE: 06/25/19 PRIMARY CARE PHYSICIAN: Mckayla Schaeffer MD. ENT PHYSICIAN CONSULTED DURING THIS HOSPITALIZATION: Jung Lynne MD. PRIMARY DIAGNOSIS: Thyroid mass causing sore throat. SECONDARY DIAGNOSES: 1. Diabetes. 2. Obesity. 3. Obstructive sleep apnea, on CPAP. 4. History of peripheral neuropathy. 5. Hyperlipidemia. 6. Distant history of rectal cancer in 2011, status post chemoradiation. MEDICATIONS ON DISCHARGE: 1. Amitriptyline 10 mg p.o. q.p.m. 2. Pravastatin 20 mg p.o. q.h.s. 3. Trulicity 1.5 mg subcutaneous weekly. 4. Pioglitazone 30 mg p.o. daily. 5. Lyrica 75 mg p.o. t.i.d. 6. Lisinopril 2.5 mg p.o. q.p.m. 7. Prandin 1 mg p.o. b.i.d. 8. Gabapentin 300 mg p.o. t.i.d. 9. Aspirin 81 mg daily. 10. Multivitamin 1 tablet p.o. daily. 11. Loratadine 10 mg p.o. daily. Medication changes on this hospital include none. HISTORY OF PRESENT ILLNESS AND HOSPITAL COURSE: This is a 63-year-old female with the above past med ical history who presented with 2 days of throat pain. She went to see her primary care provider, tico o referred her to the emergency room for further evaluation. Vital signs in the emergency room were stable. A CT of the neck was done, which showed a 3.5 cm mass in the right side of the thyroid with a prominent lymph node at the mediastinum inferior to the mass, paraesophageal. The patient had labs done that were unremarkable, other than a CRP mildly elevated at 40. Thyroid studies were normal fo r TSH, free T4, T3, TPO. She has had routine colonoscopies with Dr. Gaspar and last was in 2016. S he has had no other associated signs or symptoms on review of systems. In the emergency room, she go t dexamethasone. Also, ENT was consulted in the emergency room and Dr. Lynne was able to perfor m a scope at bedside, which showed paralysis on the right side. He reports he will arrange for follow up with her closely after outpatient. She was admitted to the hospital for observation to determine if there would be any airway compromise and overnight, the patient did well. She needed no Decadron. Pain control was managed with Tylenol. She was able to swallow. She has no compromise and she nee ded no oxygen. Her items to follow up on status post discharge will be as follows: 1. New thyroid mass. The patient will need an ultrasound and FNA biopsy of the 3.5 cm mass found on the right thyroid. She does have associated paralysis of the vocal cord, but has no airway compromi se, is able to swallow, and has no complications or desaturation. She is stable to be discharged to home for continued outpatient workup for the FNAs and thyroid ultrasounds are not done over the weeke nd in the hospital and the patient elects to pursue this as an outpatient workup, which seems reasona ble. Her thyroid studies were expedited here while in the hospital and they were unremarkable. An o rder is placed for an FNA and thyroid ultrasound to be scheduled during the following week, and [facility] consult placed to Dr. Lynne's office, where he assures that he will follow up with the patient by the following Thursday, which would be 07/01/19. The patient can advocate for hers elf and is aware to call Dr. Lynne's office as well as call center for scheduling to schedule he r ultrasound and FNA, understanding that Dr. Lynne may need to move up these appointments in ord er to get them done in a timely manner. 2. Her home medications were continued and unchanged. Pain control was essentially managed well wit h Tylenol alone and status post 1 Decadron dose. No other changes were made. On the day of discharge, the patient is voiding, ambulating without desaturating, completing her acti vities of daily living without pain or discomfort. A physical exam was done that is notable for a pl easant woman in no acute distress. She does have some change in her voice, but can swallow. She has no stridor. Her lungs are clear. Her heart has regular rate and rhythm. No murmurs, rubs, or gall ops. Her belly is soft and nontender, and her extremities are normal. LABS AND STUDIES DONE DURING THIS HOSPITALIZATION: White blood cell count 6.3, hemoglobin 12, hemato crit 34, platelets 218. BMP: Sodium 138, potassium 3.9, chloride 104, carbon dioxide 29, anion gap 5, BUN 9, creatinine 0.68, glucose 105, hemoglobin A1c is 7.1. LFTs are unremarkable. CRP is 40. T SH is 1.5, free T4 is 0.85, total T3 is 91, TPO is 1.61, and thyroglobulin antibody is negative. CT of neck was done on 06/24/19, which showed a 3.5 cm mass within the right thyroid lobe with a kurtis mmended thyroid ultrasound and further evaluation and a mildly prominent lymph node located near the mediastinum inferior to the mass. A chest x-ray was done on 06/24/19, which showed no acute cardiopulmonary disease. CONSULTANTS DURING THIS HOSPITALIZATION: Dr. Mitchel Lynne, who agrees to follow up with the reagan ent the week following her discharge on 07/01/19, where he will also expedite ultrasound-guided fine needle aspiration of this thyroid mass as well as further need for likely surgery in the event that t his is an oncologic process. From an acute medicine standpoint, her airway is stable. Her pain cont rol is effectively managed and she is stable to discharge to home. DISPOSITION AT THE TIME OF DISCHARGE: Stable to return home. TIME SPENT: Forty minutes were spent on the planning of this discharge with over half of that spent directly at the bedside of the patient, providing direct patient care. Plan of care was discussed with the patient and family, who agreed to return her to home and have mumtaz se followup as outpatient. There were no further questions. This is a summary of all the care that was given during this hospitalization and for any questions regarding the care of this patient, keny jade do not hesitate to contact me directly at my cellphone, which is [phone]. [id number]/[facility] #: [id number]
[2019-06-28 13:23] LABS: Albumin 3.3 g/dL (3.4-4.7); Albumin/Globulin Ratio 0.95; Total Protein(PEP) 6.8 g/dL (6.3 - 7.9)
== END 2019-06-25 13:10 | disposition home or self-care (01) ==
LOC: ED 15:36 → MED 20:11
PROVIDERS: ADMIT Internal Medicine; ATTEND Internal Medicine
DX: E04.1 Nontoxic single thyroid nodule (principal); J02.9 Acute pharyngitis, unspecified; E11.9 Type 2 diabetes mellitus without complications; E66.9 Obesity, unspecified; G47.33 Obstructive sleep apnea (adult) (pediatric); G62.9 Polyneuropathy, unspecified; E78.5 Hyperlipidemia, unspecified; Z85.048 Personal history of other malignant neoplasm of rectum, rectosigmoid junction, and anus; Z79.82 Long term (current) use of aspirin; Z79.899 Other long term (current) drug therapy; Z88.2 Allergy status to sulfonamides; Z88.0 Allergy status to penicillin; Z79.4 Long term (current) use of insulin; Z68.42 Body mass index [BMI] 45.0-49.9, adult; M54.5 Low back pain; Z87.891 Personal history of nicotine dependence; Z92.21 Personal history of antineoplastic chemotherapy
CPT/HCPCS: 36415; 70491; 71046; 80053; 83036; 83605; 83615; 84155; 84165; 84439; 84443; 84479; 84550; 85025; 85610; 86140; 86376; 86800; 93005; 99284; A9270-GY; G0378; J1815; J8540; Q9967

== ENCOUNTER → 2019-07-20 09:48 | Day surgery (SDC) | payer OTHER ==
[~2019-07-20 09:48] MED LIST changes: -Buffered Lidocaine 0.9% SYRIN* 5 ML/SYR SYRINGE INTRADERM ONE; +Buffered Lidocaine 1% SYRIN* 1 ML/SYRINGE INTRADERM ONE; -Famotidine IV* 10 MG/ML 2 ML (20 mg) IV ONE; +Lactated Ringers 1000 ML Bag* 1,000 ML IV SCH; +Lidocaine 2% PF * 5 ML VIAL ONE; -Metoclopramide TAB* 10 MG PO ONE; +Midazolam* 1 MG/ML 2 ML VIAL (2 MG) ONE; +Propofol* 10 MG/ML 20 ML BTL ONE; +fentaNYL* 50 MCG/ML 2 ML VIAL (100 MCG VIAL) ONE
[2019-07-20 10:30] VITALS: BP 144/76
--- NOTE | 2019-07-20 19:42 | PN ---
PROGRESS NOTE: DATE OF SERVICE: 07/20/19 SUMMARY: The patient had been scheduled for total thyroidectomy because of papillary thyroid carcinoma and a right-sided vocal cord paralysis. I had had her get a preoperative clearance evaluation, and it was noted in the past medical history she had a heart murmur since the age of 20, but this was not documented in her physical examination. Anesthesia, Dr. Watters, noted that she had a systolic ejection murmur over her aorta. This has not been worked up. The patient is also diabetic and obese, and we spoke to Dr. Fitzgerald who recommended an echocardiogram and cardiac workup to determine what this means for the patient. The risk of surgery is catastrophic if this is a severe stenosis; therefore, the surgery was canceled. [id number]/[facility] #: [id number] DAVID
== END | disposition home or self-care (01) ==
LOC: OR 09:48
PROVIDERS: ATTEND Otolaryngology
DX: C73 Malignant neoplasm of thyroid gland (principal); Z53.09 Procedure and treatment not carried out because of other contraindication; R01.1 Cardiac murmur, unspecified; J38.01 Paralysis of vocal cords and larynx, unilateral; E11.9 Type 2 diabetes mellitus without complications; I10 Essential (primary) hypertension; Z87.891 Personal history of nicotine dependence; Z88.0 Allergy status to penicillin; J30.89 Other allergic rhinitis
CPT/HCPCS: J2250; J2704; J3010

== ENCOUNTER 2019-08-12 09:47 | Observation (INO) | payer OTHER ==
[~2019-08-12 09:47] MED LIST changes: +Famotidine IV* 10 MG/ML 2 ML (20 mg) IV ONE; -Lidocaine 2% PF * 5 ML VIAL ONE; -Midazolam* 1 MG/ML 2 ML VIAL (2 MG) ONE; -Propofol* 10 MG/ML 20 ML BTL ONE; -fentaNYL* 50 MCG/ML 2 ML VIAL (100 MCG VIAL) ONE
[2019-08-12] MEDS ORDERED: Famotidine IV* 10 MG/ML 2 ML (20 mg) ONE (10:07)
[2019-08-12] MEDS ORDERED: fentaNYL* 50 MCG/ML 2 ML VIAL (100 MCG VIAL) ONE ×3 (10:20→14:11)
[2019-08-12] MEDS ORDERED: Midazolam* 1 MG/ML 2 ML VIAL (2 MG) ONE (10:20)
[2019-08-12] MEDS ORDERED: Lidocaine 1% w EPI 1:100,000* MDV 20 ML VIAL ONE (11:09)
[2019-08-12] MEDS ORDERED: Lidocaine 2% PF * 5 ML VIAL ONE (11:21)
[2019-08-12] MEDS ORDERED: Succinylcholine* 20 MG/ML 10 ML VIAL ONE (11:27)
[2019-08-12] MEDS ORDERED: Ondansetron INJ* 2 MG/ML VIAL ONE (11:27)
[2019-08-12] MEDS ORDERED: Cisatracurium* 2 MG/ML MDV 5 ML ONE (11:27)
[2019-08-12] MEDS ORDERED: Dexamethasone IV* 4 MG/ML 1 ML (4 MG) ONE (11:27)
[2019-08-12] MEDS ORDERED: Propofol* 10 MG/ML 20 ML BTL ONE (11:27)
[2019-08-12] MEDS ORDERED: Naloxone* 0.4 MG/ML 1 ML VIAL IV PRN (13:37)
[2019-08-12] MEDS ORDERED: diPHENhydraMINE IV* 50 MG/ML 1 ml VIAL (BENADRYL) IV PRN (13:42)
[2019-08-12] MEDS ORDERED: Ondansetron INJ* 2 MG/ML VIAL IV PRN ×4 (13:42→16:45)
[2019-08-12] MEDS ORDERED: DiMENhydriNATE IV* 50 MG/ML VIAL IV PUSH PRN (13:42)
[2019-08-12] MEDS ORDERED: HYDROcodone/ACETAMIN 5-325 MG* 1 TAB PO PRN (13:42)
[2019-08-12] MEDS ORDERED: Acetaminophen IV 1GM/100ML * 100 ML ONE (14:00)
[2019-08-12] MEDS: fentaNYL* 50 MCG/ML 2 ML VIAL (100 MCG VIAL) IV PRN ×3 (14:11→14:44)
[2019-08-12] MEDS ORDERED: HYDROcodone/ACET. 7.5/325 LIQ* 15 ML UDC ONE (14:41)
--- NOTE | 2019-08-12 15:10 | OP ---
DATE OF OPERATION: 08/12/19 - ROOM #332 DATE OF : 55 SURGEON: Adis Lynne MD INFORMATICS PHARMACIST: Dr. Chung. ANESTHESIA: General endotracheal anesthesia. PRE-OP DIAGNOSIS: Papillary thyroid carcinoma. POST-OP DIAGNOSIS: Papillary thyroid carcinoma. OPERATIVE PROCEDURE: Total thyroidectomy including anterior tracheal lymph nodes under general endotracheal anesthesia. SPECIMENS: Right thyroid lobe and left thyroid lobe. ESTIMATED BLOOD LOSS: About 20 mL. COMPLICATIONS: None. DISPOSITION: Good. DRAINS: JOEL x1. DESCRIPTION OF PROCEDURE: The patient was taken to the operating room, placed in the supine position on the operating room table, general anesthesia was induced and she was orotracheally intubated with a NIMS monitoring tube. NIMS monitoring was done during the procedure with the stimulator. Preoperatively, she already had a right vocal cord paralysis and I was not able to save this nerve during the surgery. The left recurrent laryngeal nerve was identified and traced to its entirety, preserved and stimulated at the end of the case. Head was extended. The incision was demarcated and injected with 1% lidocaine with 1:100,000 epinephrine. She was prepped with DuraPrep and draped in a sterile fashion. Incision made through the skin and the platysma muscle. Inferior and superior subplatysmal flaps were raised and the Osman retractor was placed. The strap muscles were identified and opened up with a median raphe and lifted off of the thyroid lobes. First, I did surgery on the right side. The tumor had adhered to muscles. Some muscle was resected. I tried to include lymph nodes in the anterior tracheal wall and in the paratracheal area around the tumor. The tumor was wrapping itself around the trachea into the retrotracheal area. The gland was dissected systematically. The superior vessels were identified, clipped and then sutured. The ligature was used to cut them. Coming inferiorly, we identified the recurrent laryngeal nerve and inferior vessels, the nerve was going right into tumor, there was no way to preserve this and these were clipped and cut. We came around pulling the tumor out from underneath the trachea including some suspicious lymph nodes and took it off of the tracheal wall and removing the right thyroid lobe. The isthmus had been transected and this was sent as a separate specimen. The left thyroid lobectomy was performed by elevating the strap muscles off of the gland. The superior vessels were identified, clipped and ligated. I was able to find the recurrent laryngeal nerve in the tracheoesophageal groove inferiorly. The parathyroid glands were elevated off of the gland. The nerve was traced into its insertion and the left lobe was removed without difficulties. Hemostasis was ensured. Surgicel was placed into the tracheoesophageal groove bilaterally. A #7 JOEL drain was placed. The strap muscles were reapproximated with running 3-0 Vicryl, deep dermal 3-0 Vicryl sutures were placed and a running 4-0 nylon subcuticular suture was placed, Mastisol and Steri-Strips. The patient tolerated the procedure well, no complications, and transferred to the recovery room in stable condition. [id number]/[facility] #: [id number] DAVID
[2019-08-12] MEDS ORDERED: Docusate CAP* 100 MG PO PRN (15:47)
[2019-08-12] MEDS ORDERED: Acetaminophen TAB* 325 MG PO PRN (15:47)
[2019-08-12] MEDS: LR @ 40 MLS/HR IV SCH (16:33)
[2019-08-12] MEDS ORDERED: Ondansetron TAB* 4 MG PO PRN (16:42)
[2019-08-12] MEDS ORDERED: HYDROcodone/ACET. 7.5/325 LIQ* 15 ML UDC PO PRN (17:06)
[2019-08-12] MEDS: Cholecalciferol TAB* 1000 UNITS PO SCH (17:06)
[2019-08-12] MEDS: Calcium Citrate TAB* 200 MG PO SCH (17:29)
[2019-08-12] MEDS ORDERED: Dextrose 50% VIAL 50 ml IV PUSH PRN (17:51)
[2019-08-12] MEDS: Lisinopril TAB* 5 MG PO SCH (18:00)
[2019-08-12] MEDS: HYDROcodone/ACET. 7.5/325 LIQ* 15 ML UDC PO PRN (20:31)
--- NOTE | 2019-08-12 20:32 | HP ---
MEDICATION ADDENDUM NOW INCLUDED ON THIS REPORT CC: Dr. Mckayla Schaeffer; Dr. Jung Lynne * ADMISSION HISTORY AND PHYSICAL: DATE OF ADMISSION: 08/12/19 PRIMARY CARE PROVIDER: Mckayla Schaeffer MD CONSULTING SURGEON ON THIS CASE: Dr. Jung Lynne. ATTENDING FOR THIS ADMISSION: Dr. Demetra Moncada.* (DICTATED BY SJ CARTER NP) CHIEF COMPLAINT: Elective total thyroidectomy. HISTORY OF PRESENT ILLNESS: Ms. Nielsen is a 63-year-old female patient who presented to Dr. Lynne with complaints of throat pain and difficulty swallowing. After diagnostics were performed, she was found to have a right vocal cord paralysis and a thyroid mass was noted on CT scan. She had some additional diagnostics done. She was found to have papillary thyroid carcinoma. She presented today with Dr. Lynne for an elective thyroidectomy. She was seen in the PACU in the postoperative state. She is awake and alert. She is complaining of some tenderness to the operative site and also some discomfort with swallowing, but she is otherwise controlling her secretions and stating that her pain is approximately 3/10. She is not complaining of any fever, fatigue, or chills. No dizziness. No acute shortness of breath. No nausea. No vomiting. No urinary complaints. No arthralgias or myalgias. No further constitutional complaints at this time. Hospitalists are being requested to place the patient for admission to the short- stay surgical unit for continued medical care while she is recovering from her surgery. PAST MEDICAL HISTORY: Significant for diabetes, hypertension, obesity, and seasonal allergies. PAST SURGICAL HISTORY: Significant for section x2, hysterectomy, and knee surgery. ALLERGIES: The patient has allergies to PENICILLINS, SULFA, TETRACYCLINES, NICKEL, ADHESIVE TAPE, and NYLON. FAMILY HISTORY: The patient states that there is heart disease on parents' side including hypertension, strokes, and cancer on both parents' side. The patient is unable to elaborate on that any further. SOCIAL HISTORY: She works full-time. She does not smoke at this time. She did have a former history of smoking for 30 years and quit at age 52. She drinks alcohol only socially. Her healthcare proxy is her daughter, who is not currently at the bedside. REVIEW OF SYSTEMS: Ten-point review of systems is negative except as noted in HPI above. PHYSICAL EXAMINATION GENERAL: The patient is alert and awake, in no acute distress. VITAL SIGNS: Blood pressure 156/66, heart rate 87, respiratory rate 16, O2 saturation 92% on 2 L nasal cannula with a temperature of 98.2. HEENT: The patient is atraumatic, normocephalic. PERRLA. Nonicteric sclerae. Oral mucosa is moist. Tongue is midline. NECK: Tender, but otherwise supple. There is an approximated suture line covered in Steri-Strips and a JOEL drain with sanguineous drainage noted in the right anterior neck above the clavicle. There was no erythema or additional drainage noted around the suture line. LUNGS: Clear bilaterally to auscultation with no wheezing, rhonchi, or rales. CARDIOVASCULAR: S1, S2 present. No murmurs, gallops, or rubs noted. Rate and rhythm are currently regular. She has regular sinus rhythm on telemetry. ABDOMEN: Soft, nontender, nondistended. Obese. Positive bowel sounds in all 4 quadrants. : Deferred. MUSCULOSKELETAL: There is no clubbing, no cyanosis, no edema. She has +2 distal pulses palpable. Full range of motion. Gross motor and sensation are intact. NEUROLOGIC: Grossly intact. No focal deficits. PSYCHIATRIC: She is cooperative and appropriate. She is alert and oriented x3. DIAGNOSTIC STUDIES/LAB DATA: Laboratories: Preoperative glucose is 117. Imaging: No imaging is available. IMPRESSION: Ms. Nielsen is a 63-year-old female with recent diagnosis of papillary thyroid carcinoma, who presented to [facility] today for an elective total thyroidectomy with Dr. Lynne. PLAN: The patient has been admitted to short-stay surgical unit. DIAGNOSES: 1. Status post total thyroidectomy. Primary plan of care will be as per ENT Service. Dr. Lynne has already identified orders for pain control and postoperative care. Her drain will be managed closely. Dr. Lynne will be seeing the patient tomorrow in the afternoon. Currently, her airway is patent. Her diet can be advanced to soft diet. She is swallowing clear liquids without difficulty in the PACU currently. At this time, we do not see any need for additional or advanced airway management. She can have Tylenol as needed for pain, Lawai for breakthrough pain. We will continue her on IV fluids. She is currently on lactated Ringer's 100 mL per hour and Zofran 8 mg q.6 hours as needed for nausea or vomiting. We will check her labs in the morning, BMP and CBC first thing in the morning. Dr. Lynne has also ordered doses of Citracal D 4 times a day for the first 7 days and this will be tapered as an outpatient, first dose will be at 5 p.m. today. 2. History of hypertension. The patient will be maintained on her home medications of lisinopril. 3. History of diabetes mellitus. For now, we will hold the patient's Prandin, Actos, and weekly Trulicity and place her on lispro sliding scale with Accu- Cheks a.c. and at bedtime and soft consistent carbohydrate diet. 3. For DVT prophylaxis, she will have SCDs and ambulate as tolerated. She is high risk for bleeding. 4. Code status. She is full code. The rest of the patient's course will be determined by further diagnostics, laboratories, and any other input from other providers as warranted during this admission. TIME SPENT: Time spent on admitting this patient 45 minutes on admission plan of care. This plan of care has been discussed with Dr. Demetra Moncada, the attending on this case, and she is in agreement with admission plan of care. SJ CARTER NP ADDENDUM: CURRENT MEDICATION LIST: 1. Multivitamin 1 tablet by mouth daily. 2. Aspirin 81 mg daily. 3. Gabapentin 100 mg p.o. daily. 4. Lyrica 75 mg p.o. t.i.d. 5. Lisinopril 2.5 mg daily. 6. Repaglinide 1 mg before breakfast and 1 mg before dinner. 7. Amitriptyline 10 mg p.o. at bedtime. 8. Vitamin D 50,000 units once weekly. 9. Clarinex 5 mg by mouth daily. 10. Pravastatin 20 mg by mouth daily. 11. Trulicity 1.5 mg injected subcutaneously once weekly. 12. Actos 30 mg 1 tab daily. SJ CARTER NP [id number]/[facility] #: [id number]/[facility] #: [id number] DAVID
[2019-08-12] MEDS: Pregabalin CAP(*) 25 MG PO SCH (20:33)
[2019-08-12] MEDS: Gabapentin CAP(*) 100 MG PO SCH (20:33)
--- NOTE | 2019-08-12 20:40 | HP ---
HISTORY AND PHYSICAL: ADDENDUM: CURRENT MEDICATION LIST: 1. Multivitamin 1 tablet by mouth daily. 2. Aspirin 81 mg daily. 3. Gabapentin 100 mg p.o. daily. 4. Lyrica 75 mg p.o. t.i.d. 5. Lisinopril 2.5 mg daily. 6. Repaglinide 1 mg before breakfast and 1 mg before dinner. 7. Amitriptyline 10 mg p.o. at bedtime. 8. Vitamin D 50,000 units once weekly. 9. Clarinex 5 mg by mouth daily. 10. Pravastatin 20 mg by mouth daily. 11. Trulicity 1.5 mg injected subcutaneously once weekly. 12. Actos 30 mg 1 tab daily. SJ CARTER, DEPARTMENT STORE GENERAL MANAGER [id number]/[facility] #: [id number] DAVID
[2019-08-12] MEDS: Insulin LISPRO* 1 UNITS UNIT SUBCUT SCH (21:09)
[2019-08-13] MEDS: LR @ 40 MLS/HR IV SCH (02:19)
[2019-08-13 07:13] LABS: ABS Lymphocytes 2.1 10^3/ul (1.0-4.8); ABS Monocytes 0.8 10^3/ul (0-0.8); ABS Neutrophils 9.1 10^3/ul (1.5-7.7); Eosinophil % 0.1 %; Hematocrit 37 % (35-47); Hemoglobin 12.4 g/dL (12.0-16.0); Lymphocyte % 17.3 %; Mean Corpuscular HGB Conc 34 g/dL (31-36); Mean Corpuscular Hemoglobin 31 pg (27-31); Mean Corpuscular Volume 92 fL (80-97); Mean Platelet Volume 8.9 fL (7.4-10.4); Platelet Count 243 10^3/uL (150-450); Red Cell Distribution Width 14 % (10-15); White Blood Count 11.9 10^3/uL (3.5-10.8)
[2019-08-13 07:22] LABS: BUN/Creatinine Ratio 20.3 (8-20); Calcium 9.6 mg/dL (8.6-10.3); EGFR African American 113.4 (>60); EGFR Non-African American 93.7 (>60)
[2019-08-13] MEDS: HYDROcodone/ACET. 7.5/325 LIQ* 15 ML UDC PO PRN ×3 (10:09→21:59)
[2019-08-13] MEDS: Pregabalin CAP(*) 25 MG PO SCH ×3 (10:10→21:59)
[2019-08-13] MEDS: Gabapentin CAP(*) 100 MG PO SCH ×3 (10:11→21:11)
[2019-08-13] MEDS: Cholecalciferol TAB* 1000 UNITS PO SCH (10:12)
[2019-08-13] MEDS: Insulin LISPRO* 1 UNITS UNIT SUBCUT SCH ×4 (10:13→21:11)
[2019-08-13] MEDS: Calcium Citrate TAB* 200 MG PO SCH (10:13)
[2019-08-13] MEDS: Lisinopril TAB* 5 MG PO SCH (17:41)
--- NOTE | 2019-08-13 18:32 | PN ---
Subjective Date of Service: 08/13/19 Interval History: Patient seen and examined. No acute overnight events. Pain well controlled, no dysphagia, tolerating soft diet. Denies fever or chills, no SOB, no cough. Maintaining her own secretions without issue. Objective Active Medications: Acetaminophen (Tylenol Tab*) 650 mg PO Q4H PRN PRN Reason: MILD PAIN or TEMP > 100.4 Hydrocodone Bitart/Acetaminophen (Nortab 7.5/325 Liq*) 10 ml PO Q4H PRN PRN Reason: PAIN - MODERATE Last Admin: 08/13/19 17:41 Dose: 10 ml Hydrocodone Bitart/Acetaminophen (Nortab 7.5/325 Liq*) 20 ml PO Q4H PRN PRN Reason: PAIN-SEVERE Calcium Citrate (Citracal Tab*) 1,200 mg PO DAILY [facility] Last Admin: 08/13/19 10:13 Dose: 1,200 mg Cholecalciferol (Vitamin D Tab*) 1,000 units PO DAILY [facility] Last Admin: 08/13/19 10:12 Dose: 1,000 units Dextrose (Dextrose 50% Vial 50 Ml*) 25 ml IV PUSH .FOR FS < 60 - SS PRN PRN Reason: FS < 60 Docusate Sodium (Colace Cap*) 100 mg PO BID PRN PRN Reason: CONSTIPATION Gabapentin (Neurontin Cap(*)) 100 mg PO TID [facility] Last Admin: 08/13/19 14:22 Dose: 100 mg Insulin Human Lispro (Humalog*) 0 units SUBCUT [facility]; Protocol Last Admin: 08/13/19 18:17 Dose: 3 units Lisinopril (Prinivil Tab*) 2.5 mg PO QPM [facility] Last Admin: 08/13/19 17:41 Dose: 2.5 mg Ondansetron HCl (Zofran Inj*) 8 mg IV Q6H PRN PRN Reason: NAUSEA/VOMITING Ondansetron HCl (Zofran Tab*) 8 mg PO Q6H PRN PRN Reason: NAUSEA/VOMITING Pregabalin (Lyrica Cap(*)) 75 mg PO TID [facility] Last Admin: 08/13/19 14:22 Dose: 75 mg Vital Signs - 8 hr 08/13/19 08/13/19 08/13/19 11:06 12:09 14:22 Temperature 98.3 F Pulse Rate 79 Respiratory 20 16 16 Rate Blood Pressure 132/55 (mmHg) O2 Sat by Pulse 96 Oximetry 08/13/19 08/13/19 08/13/19 15:07 17:41 17:42 Temperature 98.3 F Pulse Rate 83 Respiratory 18 16 16 Rate Blood Pressure 138/64 (mmHg) O2 Sat by Pulse 94 Oximetry Oxygen Devices in Use Now: None Appearance: alert, NAD Eyes: No Scleral Icterus, PERRLA Ears/Nose/Mouth/Throat: Mucous Membranes Moist Neck: NL Appearance and Movements; NL JVP, - - Wound approximated, JOEL drain with serosanguinous drainage, no edema or erythema, voice is horse Respiratory: Symmetrical Chest Expansion and Respiratory Effort, Clear to Auscultation Cardiovascular: NL Sounds; No Murmurs; No JVD, RRR Extremities: No Edema, No Clubbing, Cyanosis Skin: No Rash or Ulcers Neurological: Alert and Oriented x 3, NL Gait Nutrition: Taking PO's, - - soft diet Result Diagrams: 08/13/19 06:40 08/13/19 06:40 Assess/Plan/Problems-Billing Assessment: This is a 63 year old female with recent diagnosis of papill.miriam thyroid carcinoma that presented on 08/12/19 for total thyroidectomy - Patient Problems (1) Papillary thyroid carcinoma Comment: - POD1 thryoidectomy - POC as per ENT/surgery - Monitor output on JOEL drain - Airway is patient, patient maintaining secretions, no dysphagia - Pain control - Continue Citracal+D supplementation per ENT (2) HTN (hypertension) Code(s): I10 - ESSENTIAL (PRIMARY) HYPERTENSION SNOMED Code(s): 38163425 Comment: - Continue lisinopril (3) JAYJAY (obstructive sleep apnea) Code(s): G47.33 - OBSTRUCTIVE SLEEP APNEA (ADULT) (PEDIATRIC) SNOMED Code(s): 77206938 Comment: - Continue home CPAP (4) Diabetes Code(s): E11.9 - TYPE 2 DIABETES MELLITUS WITHOUT COMPLICATIONS SNOMED Code(s) : 97725725 Comment: - HbA1c 7.1 in june - Actos and trulicity on hold - Continue lispro SS post-op with accuchecks ACHS (5) DVT prophylaxis Code(s): AXD5992 - SNOMED Code(s): 953039688 Comment: - SCDs and ambulate, high risk for post op bleeding (6) Full code status Code(s): Z78.9 - OTHER SPECIFIED HEALTH STATUS SNOMED Code(s): 418759479 Status and Disposition: Inpatient, dispo to home when clear by ENT
--- NOTE | 2019-08-13 22:22 | PN ---
PROGRESS NOTE: DATE OF SERVICE: 08/13/19 - ROOM #332 HISTORY: The patient is postop day 1 from her total thyroidectomy. I had actually come in at 3 o'clock this morning to check on her. She was doing well. The drain was serous drainage. Her evening calcium was good. She had a good day so far and again her calcium is in the 9s. She is not having any complaints consistent with hypocalcemia. She is a little bit sore. Her voice _ it was preoperatively and otherwise doing well. PHYSICAL EXAMINATION: Her incision is clean, dry, intact. The JOEL has some serous drainage. The suture was cut, removed, 2x2 was placed over the hole. No [place]ek sign. ASSESSMENT: The patient is doing well. Her hoarseness is to be expected. The tumor was ingrown around the nerve and there was no way to save the right recurrent laryngeal nerve, but some of this is from swelling and there should be some improvement over time. A final surgery could be done at some point if needed. She will continue with the calcium postoperatively, and we can send her home based on the schedule that I had given her and she will follow up with me in the office as scheduled. [id number]/[facility] #: [id number] DAVID
[2019-08-14 07:24] VITALS: BP 129/48
[2019-08-14] MEDS: Insulin LISPRO* 1 UNITS UNIT SUBCUT SCH (08:16)
[2019-08-14] MEDS: Gabapentin CAP(*) 100 MG PO SCH (08:17)
[2019-08-14] MEDS: Cholecalciferol TAB* 1000 UNITS PO SCH (08:17)
[2019-08-14] MEDS: Pregabalin CAP(*) 25 MG PO SCH (08:17)
[2019-08-14] MEDS: HYDROcodone/ACET. 7.5/325 LIQ* 15 ML UDC PO PRN (08:18)
[2019-08-14] MEDS: Calcium Citrate TAB* 200 MG PO SCH (08:22)
--- NOTE | 2019-08-14 21:10 | DS ---
CC: Dr. Mckayla Schaeffer; Dr. Jung Lynne * DISCHARGE SUMMARY: DATE OF ADMISSION: 08/12/19 DATE OF DISCHARGE: 08/14/19 ATTENDING SURGEON FOR THIS ADMISSION: Dr. Jung Lynne. ATTENDING FOR THIS HOSPITALIZATION: Dr. Demetra Moncada.* (DICTATED BY SJ CARTER NP) PRIMARY CARE PROVIDER: Dr. Mckayla Schaeffer. HOSPITAL COURSE: Please refer to the admitting H and P on 08/12/19, but in short, Ms. Nielsen is a 63-year-old female patient who presented on 08/12/19, for an elective thyroidectomy and parathyroidectomy with Dr. Lynne for a diagnosis of papillary thyroid carcinoma. The patient was found to also have a right-sided vocal cord paralysis and thyroid mass, which was noted on CAT scan some time ago. She underwent her procedure on 08/12/19. She had a relatively uneventful postoperative course. The patient initially in the PACU was awake and alert. She had a JOEL drain that was inserted intraoperatively which was draining serosanguineous fluid. She did not have any postoperative dysphagia or edema. She was able to control her secretions and did not have any issues with speaking. She did have some hoarseness to her voice which was to be expected postoperatively, but otherwise her pain was well controlled. She did not have any nausea or vomiting. She did not have any fevers or chills or any disturbances in her hemodynamics in the postoperative period. Dr. Lynne did see the patient on postop day 1 and removed her drain. Her surgical site has remained benign. He has cleared her for discharge to home. She is going to be discharged this morning. Her only new medication is to be Citracal Plus D supplementation that will be on a tapered dose. Otherwise, no further changes have been made to her medications. DISCHARGE DIAGNOSES: Her discharge diagnoses are as follows: 1. Status post total thyroidectomy for papillary thyroid carcinoma. 2. History of hypertension. 3. History of diabetes mellitus. 4. History of obstructive sleep apnea. 5. History of neuropathy. DISCHARGE MEDICATIONS: Include: 1. Prandin 1 mg p.o. b.i.d. before meals. 2. Lyrica 75 mg p.o. 3 times daily. 3. Pravastatin 20 mg p.o. at bedtime. 4. Actos 30 mg in the morning. 5. Multivitamin with mineral 1 tab p.o. daily. 6. Claritin 10 mg in the morning. 7. Lisinopril 2.5 mg in the evening. 8. Gabapentin 200 mg 3 times daily. 9. Trulicity 1.5 mg subcutaneous weekly. 10. Aspirin 81 mg in the morning. 11. Elavil 10 mg at bedtime. New medications include: 1. Chapin 1 tablet p.o. q.6 hours as needed for moderate to severe pain, max daily dose of 4 tablets, 3 days' supply ordered. 2. Tylenol 650 mg 1 tablet q.4 hours as needed for mild to moderate pain. 3. Tapering dose of Citracal Plus D, taper is as follows: Days 0 through 7 postoperatively, 4 tablets daily; days 8 through 14, 3 tablets daily; days 15 and moving forward, 2 tablets per day until calcium level is rechecked by primary care provider. Note that this taper schedule is for calcium levels 10.0 through 11.9. This is as per Dr. Lynne's instructions which have been given to the patient. REVIEW OF SYSTEMS: On the day of discharge, the patient denies any fever, fatigue, or chills. She denies any dysphagia. Her pain is rated as 2/10. There is no shortness of breath. She denies any chest pain, no nausea, no vomiting, no abdominal pain, no urinary complaints, no arthralgias or myalgias, and no further constitutional complaints. PHYSICAL EXAMINATION: Reveals a well-appearing female in no acute distress. Vital signs are blood pressure 129/48, heart rate 79, respiratory rate 17, O2 saturation 95% on room air with a temperature of 98.3. HEENT: The patient is atraumatic, normocephalic. PERRLA. Nonicteric sclerae. Oral mucosa is moist. Tongue is midline. Neck is supple. Diffusely tender. Anterior suture line is dry and intact. It is covered with Steri-Strips. She does have some dry blood under the Steri-Strip line, but there is no erythema or drainage noted. There is a clean, bulky dressing in the right lower anterior neck where the JOEL drain was removed. Again, no erythema or drainage noted. Otherwise, anterior chest and lower part is sort of benign. Cardiovascular: S1, S2 present. No murmurs, gallops, or rubs noted. Rate and rhythm are regular. Lungs are clear bilaterally to auscultation with no wheezing, rhonchi, or rales. Abdomen is soft, nontender, nondistended. Positive bowel sounds in all 4 quadrants. No organomegaly noted. is deferred. Musculoskeletal: There is no clubbing, no cyanosis, no pedal edema. She has full range of motion and steady gait. Neurologic: Alert and oriented x3. No focalities noted. Psychiatric: She is cooperative and appropriate. LABORATORY DATA: WBC is 11.9, RBC is 4.00, hemoglobin 12.4, hematocrit 37, platelets 243. Sodium 135, potassium 4.0, chloride 100, CO2 of 24. BUN 13, creatinine 0.64. GFR 93.7. Glucose today was 163. Postoperative calcium was 9.6. IMAGING STUDIES: No current imaging available. DISPOSITION: The patient was discharged to home in stable condition. All questions were answered. The patient stated her understanding of her discharge medications and followups. FOLLOWUP: The patient was instructed to follow up with Dr. Mckayla Schaeffer, her primary care provider, in the next 1 to 2 weeks for routine followup and with Dr. Jung Lynne, primary surgeon, also in the next 1 to 2 weeks. Her followup appointment will be arranged through Dr. Lynne's office. DIET: She has been tolerating a soft diet without issue. This should be continued and advance as tolerated. ACTIVITY: Progress activity as tolerated. WOUND CARE: The patient is instructed that she may shower, but not get direct water contact onto the surgical site. Steri-Strips will fall off naturally but she should not pull the Steri-Strips off and not handle or touch the wound until she is seen by Dr. Lynne. The patient was discharged, again in stable condition. TIME SPENT: Time spent on discharge planning is 40 minutes. SJ CARTER NP [id number]/[facility] #: [id number] DAVID
== END 2019-08-14 12:10 | disposition home or self-care (01) ==
LOC: OR 09:47 → INTOOBSV 15:47 → SSU 15:47
PROVIDERS: ADMIT Internal Medicine; ATTEND Internal Medicine
DX: C73 Malignant neoplasm of thyroid gland (principal); E11.9 Type 2 diabetes mellitus without complications; I10 Essential (primary) hypertension; E66.9 Obesity, unspecified; G47.33 Obstructive sleep apnea (adult) (pediatric); R01.1 Cardiac murmur, unspecified; E78.5 Hyperlipidemia, unspecified; Z91.09 Other allergy status, other than to drugs and biological substances; Z87.891 Personal history of nicotine dependence; Z79.82 Long term (current) use of aspirin; Z79.899 Other long term (current) drug therapy; Z88.0 Allergy status to penicillin
CPT/HCPCS: 36415; 80048; 82310; 85025; 88307; A9270-GY; G0378; J0330; J1100; J2250; J2405; J2704; J3010

== ENCOUNTER 2021-06-21 06:09 | Observation (INO) ==
[~2021-06-21 06:09] MED LIST changes: +Buffered Lidocaine 1% SYRIN 1 ml INTRADERM ONE; -Buffered Lidocaine 1% SYRIN* 1 ML/SYRINGE INTRADERM ONE; -Famotidine IV* 10 MG/ML 2 ML (20 mg) IV ONE; -Lactated Ringers 1000 ML Bag* 1,000 ML IV SCH; +Lactated Ringers 1000 ml BAG 1,000 ML IV SCH; +Sodium Citrate/Citric Acid LIQ 15 ML UDC PO ONE
[2021-06-21] MEDS ORDERED: Sodium Citrate/Citric Acid LIQ 15 ML UDC ONE (06:29)
[2021-06-21] MEDS ORDERED: Buffered Lidocaine 1% SYRIN 1 ml INTRADERM ONE (06:29)
[2021-06-21] MEDS ORDERED: Bacitracin OINTMENT TUBE ONE (07:12)
[2021-06-21] MEDS ORDERED: Lidocaine 1% w EPI 1:100,000 MDV 20 ML VIAL ONE (07:12)
[2021-06-21] MEDS ORDERED: Midazolam 2 mg/2 ml VIAL 1 mg/ml 2 ml VIAL (2 mg) ONE (07:28)
[2021-06-21] MEDS ORDERED: Glycopyrrolate IV 0.2 MG/ML 1 ML VIAL ONE (07:28)
[2021-06-21] MEDS ORDERED: Propofol 10 MG/ML 20 ML BTL ONE (07:30)
[2021-06-21] MEDS ORDERED: Rocuronium 50 mg VIAL 10 mg/ml 5 ml VIAL (50 mg) ONE (07:30)
[2021-06-21] MEDS ORDERED: Lidocaine 2% PF 5 ML VIAL ONE ×2 (07:31→09:38)
[2021-06-21] MEDS ORDERED: Dexamethasone IV 4 MG/ML VIAL 1 ml VIAL ONE (08:06)
[2021-06-21] MEDS ORDERED: Ondansetron 4 mg VIAL 2 MG/ML 2 ml VIAL ONE ×2 (08:06→14:15)
[2021-06-21] MEDS ORDERED: Phenylephrine 40 mcg/mL 10mL (400mcg) SYRINGE ONE (08:08)
[2021-06-21] MEDS ORDERED: fentaNYL 100 mcg/2 ml 50 MCG/ML VIAL ONE ×3 (08:42→11:03)
[2021-06-21] MEDS ORDERED: Acetaminophen IV 1 GM/100ML 0 ML IV ONE (09:04)
[2021-06-21] MEDS ORDERED: DiMENhydriNATE IV 50 mg/ml 1 ml VIAL ONE (10:44)
[2021-06-21] MEDS ORDERED: DiMENhydriNATE IV 50 mg/ml 1 ml VIAL IV PUSH PRN (10:45)
[2021-06-21] MEDS ORDERED: Naloxone 0.4 mg VIAL 0.4 mg/ml 1 ml VIAL IV PRN (10:45)
[2021-06-21] MEDS ORDERED: Dextrose 50% Syringe 50 ml 25 GM/50 ML SYRINGE IV PUSH PRN (10:46)
[2021-06-21] MEDS: fentaNYL 100 mcg/2 ml 50 MCG/ML VIAL IV PRN ×2 (11:04→11:18)
[2021-06-21] MEDS ORDERED: EPHEDrine (Pressors) 50 MG/ML VIAL ONE (13:27)
[2021-06-21] MEDS ORDERED: oxyCODONE 5 mg/5 ml ORAL.SOLN UDC PO PRN ×2 (13:45→13:46)
[2021-06-21] MEDS ORDERED: Ondansetron 4 mg VIAL 2 MG/ML 2 ml VIAL IV PRN (13:47)
[2021-06-21] MEDS ORDERED: Ondansetron 4 mg VIAL 2 MG/ML 2 ml VIAL IM PRN (13:48)
[2021-06-21] MEDS ORDERED: Acetaminophen IV 1 GM/100ML 100 ML IV ONE (14:11)
[2021-06-21] MEDS ORDERED: Insulin GLARGINE 100 un/ml 10 ml VIAL SUBCUT SCH (18:00)
[2021-06-21] MEDS ORDERED: CMC:Pravastatin 20 mg TAB (NF) PO SCH (21:00)
[2021-06-22 06:38] LABS: ABS Eosinophils 0.1 10^3/ul (0-0.6); ABS Lymphocytes 2.3 10^3/ul (1.0-4.8); ABS Monocytes 0.6 10^3/ul (0-0.8); ABS Neutrophils 5.6 10^3/ul (1.5-7.7); Eosinophil % 0.6 %; Hematocrit 36 % (35-47); Hemoglobin 12.1 g/dL (12.0-16.0); Lymphocyte % 26.7 %; Mean Corpuscular HGB Conc 34 g/dL (31-36); Mean Corpuscular Hemoglobin 33 pg (27-31); Mean Corpuscular Volume 97 fL (80-97); Mean Platelet Volume 7.6 fL (7.4-10.4); Platelet Count 242 10^3/uL (150-450); Red Blood Count 3.69 10^6 /uL (3.70-4.87); Red Cell Distribution Width 14 % (10-15); White Blood Count 8.5 10^3/uL (3.5-10.8)
[2021-06-22 06:58] LABS: Calcium 9.7 mg/dL (8.6-10.3); EGFR African American 89.7 (>60); EGFR Non-African American 74.1 (>60); Potassium 4.5 mmol/L (3.5-5.0)
[2021-06-22] MEDS ORDERED: Pneumococcal Vac 23-Polyvalent IM ONE (09:00)
[2021-06-22] MEDS ORDERED: Flu vaccine *QUAD* 2021-22* 0.5 ML SYRINGE IM ONE (09:00)
[2021-06-22] MEDS ORDERED: Calcium Citrate 200 mg TAB PO SCH (09:00)
[2021-06-22] MEDS ORDERED: Cholecalciferol (VIT D3) 400 units TAB PO SCH (09:00)
[2021-06-22 11:07] VITALS: BP 148/74
== END 2021-06-22 11:50 | disposition home or self-care (01) ==
LOC: OR 06:09 → SSU 06:09
PROVIDERS: ADMIT Hospitalist; ATTEND Hospitalist